=== PATIENT | female | born 1965 | race Caucasian/White ===

== ENCOUNTER 2021-10-16 13:33 | Day surgery (SDC) | payer MEDICARE, BC ==
[2021-10-12 09:52] LABS: BASOPHILS # (AUTO) 0.1 X10'3 (0-0.2); BASOPHILS % (AUTO) 1.5 % (0-1); EOSINOPHILS # (AUTO) 0.1 X10'3 (0-0.9); EOSINOPHILS % (AUTO) 1.6 % (0-6); HEMATOCRIT 40.6 % (35.0-45.0); HEMOGLOBIN 13.7 g/dl (12.0-16.0); LYMPHOCYTES # (AUTO) 1.9 X10'3 (1.1-4.8); LYMPHOCYTES % (AUTO) 24.3 % (21-51); MEAN CORPUSCULAR HEMOGLOBIN 30.6 PG (27.0-31.0); MEAN CORPUSCULAR HGB CONC 33.7 g/dL (33.0-36.5); MEAN CORPUSCULAR VOLUME 90.8 FL (78-98); MEAN PLATELET VOLUME 9.8 FL (7.4-10.4); MONOCYTES # (AUTO) 0.9 X10'3 (0-0.9); MONOCYTES % (AUTO) 10.8 % (2-12); NEUTROPHILS # (AUTO) 4.9 X10'3 (1.8-7.7); NEUTROPHILS % (AUTO) 61.8 % (42-75); PLATELET COUNT 229 X10'3 (140-440); RED BLOOD COUNT 4.47 X10'6 (4.20-5.60); RED CELL DISTRIBUTION WIDTH 14.4 % (11.5-14.5); WHITE BLOOD COUNT 7.9 X10'3 (4.5-11.0)
[2021-10-12 10:09] LABS: APTT 26 SECONDS (22-32)
[2021-10-12 11:24] LABS: ALBUMIN 4.1 G/DL (3.4-5.0); ANION GAP 13 (8-16); BLOOD UREA NITROGEN 15 MG/DL (7-18); BUN/CREATININE RATIO 16.1 (6.6-38.0); CALCIUM 9.6 MG/DL (8.5-10.1); CHLORIDE 106 MMOL/L (99-107); CREATININE 0.93 MG/DL (0.40-0.90); GLUCOSE 147 MG/DL (70-104); SODIUM 144 MMOL/L (135-145); TOTAL CARBON DIOXIDE 25.2 MMOL/L (24-32); eGFR 62 ML/MIN
[2021-10-16] VITALS (10 sets, daily range): BP systolic 135–186; BP diastolic 65–119
[~2021-10-16] VITALS: Ht 132.1 cm; Wt 50.2 kg
[~2021-10-16 13:33] MED LIST: AMLO10TA PO; ASPI-611 PO; ENAL-76 PO; HECORIA PO; INSU100V36 SQ; LANTUS SQ; METO50TA7 PO; MYCO500T PO; PRED5TAB PO
[2021-10-16] MEDS ORDERED: diphenhydrAMINE 25mg capsule PO PRN (13:50)
[2021-10-16] MEDS ORDERED: LORazepam 0.5 MG tablet PO PRN (13:50)
[2021-10-16] MEDS ORDERED: normal saline 1,000 ML IV SCH (13:50)
[2021-10-16] MEDS ORDERED: LIRA0.6P2 SQ (14:04)
[2021-10-16] MEDS ORDERED: TACR1CAP PO (14:04)
[2021-10-16] MEDS ORDERED: ENAL-79 PO (14:04)
[2021-10-16] MEDS ORDERED: EVOL140P3 SQ (14:04)
[2021-10-16] MEDS ORDERED: METO50TA16 PO (14:04)
[2021-10-16] MEDS ORDERED: INSU100I29 (14:05)
[2021-10-16] MEDS ORDERED: heparin 1,000unit/ml 10ml vial 10 ML ONE (14:53)
[2021-10-16] MEDS ORDERED: LIDOcaine 1% (10mg/ml)w/preservative injection 20ml MDV ONE (14:53)
[2021-10-16] MEDS ORDERED: iohexol 350MG/ML 100ml bottle IV ONE (14:53)
[2021-10-16] MEDS ORDERED: nitroGLYCERIN-Tridil 50MG/D5W 250 ML IV ONE (14:53)
[2021-10-16] MEDS ORDERED: verapamil 2.5 mg/ml inj IV ONE (14:53)
[2021-10-16] MEDS ORDERED: fentaNYL/PF 50MCG/1 ML 2ML syringe ONE (15:12)
[2021-10-16] MEDS ORDERED: midazolam 1 mg/ML 2ml injection ONE (15:12)
--- NOTE | 2021-10-16 19:40 | NUR ---
Discharge instructions given to pt and , questions answered, verbalize understanding.
[2021-10-16] MEDS ORDERED: acetaminophen 325mg tablet PO ONE (19:55)
[2021-10-16] MEDS ORDERED: metoprolol tartrate 50mg tablet PO ONE (19:55)
== END 2021-10-16 22:00 | disposition home or self-care (01) ==
LOC: SSTAY O 13:33
PROVIDERS: ATTEND Internal Medicine Interventional Cardiology
DX: I35.0 Nonrheumatic aortic (valve) stenosis (principal); I25.10 Atherosclerotic heart disease of native coronary artery without angina pectoris; E11.9 Type 2 diabetes mellitus without complications; I10 Essential (primary) hypertension; I65.29 Occlusion and stenosis of unspecified carotid artery; E78.49 Other hyperlipidemia; I65.23 Occlusion and stenosis of bilateral carotid arteries; Z94.0 Kidney transplant status; Z79.899 Other long term (current) drug therapy; Z79.4 Long term (current) use of insulin; Z94.83 Pancreas transplant status; Z91.018 Allergy to other foods; Z91.09 Other allergy status, other than to drugs and biological substances
CPT/HCPCS: 36415; 80048; 82948; 85025; 85610; 85730; 93005; 93454; 99152; 99153; C1760; C1769; C1894; J1644; J2250; J3010; J3490; J7030; Q9967; A5120; A6258

== ENCOUNTER 2021-10-24 09:48 | Outpatient (CLI) | payer MEDICARE, BC ==
[~2021-10-24 09:48] MED LIST changes: -ENAL-76 PO; +ENAL-79 PO; +EVOL140P3 SQ; -HECORIA PO; +INSU100I29; -LANTUS SQ; +LIRA0.6P2 SQ; +METO50TA16 PO; -METO50TA7 PO; +TACR1CAP PO
[2021-10-24 10:36] LABS: BASOPHILS # (AUTO) 0.1 X10'3 (0-0.2); BASOPHILS % (AUTO) 0.7 % (0-1); EOSINOPHILS # (AUTO) 0.1 X10'3 (0-0.9); EOSINOPHILS % (AUTO) 1.5 % (0-6); HEMATOCRIT 38.1 % (35.0-45.0); HEMOGLOBIN 12.5 g/dl (12.0-16.0); LYMPHOCYTES # (AUTO) 1.5 X10'3 (1.1-4.8); LYMPHOCYTES % (AUTO) 17.1 % (21-51); MEAN CORPUSCULAR HEMOGLOBIN 30.1 PG (27.0-31.0); MEAN CORPUSCULAR HGB CONC 32.7 g/dL (33.0-36.5); MEAN PLATELET VOLUME 10.4 FL (7.4-10.4); MONOCYTES # (AUTO) 0.9 X10'3 (0-0.9); MONOCYTES % (AUTO) 9.9 % (2-12); NEUTROPHILS # (AUTO) 6.3 X10'3 (1.8-7.7); NEUTROPHILS % (AUTO) 70.8 % (42-75); PLATELET COUNT 221 X10'3 (140-440); RED BLOOD COUNT 4.15 X10'6 (4.20-5.60); RED CELL DISTRIBUTION WIDTH 14.9 % (11.5-14.5); WHITE BLOOD COUNT 8.9 X10'3 (4.5-11.0)
[2021-10-24 10:48] LABS: APTT 25 SECONDS (22-32)
[2021-10-24] MEDS ORDERED: IODIXANOL 320 MG/ML INFUS..BTL 50ML IV ONE (11:20)
[2021-10-24] MEDS ORDERED: IODIXANOL 320 MG/ML INFUS..BTL 100ML IV ONE (11:20)
[2021-10-24 11:22] LABS: ALANINE AMINOTRANSFERASE 26 U/L (12-78); ALBUMIN 3.8 G/DL (3.4-5.0); ALBUMIN/GLOBULIN RATIO 1.4 (1.1-1.5); ANION GAP 10 (8-16); ASPARTATE AMINO TRANSFERASE 18 U/L (10-37); BILIRUBIN,TOTAL 0.3 MG/DL (0.1-1.0); BLOOD UREA NITROGEN 18 MG/DL (7-18); BUN/CREATININE RATIO 18.6 (6.6-38.0); CALCIUM 9.9 MG/DL (8.5-10.1); CHLORIDE 104 MMOL/L (99-107); CREATININE 0.97 MG/DL (0.40-0.90); GLUCOSE 212 MG/DL (70-104); POTASSIUM 4.1 MMOL/L (3.5-5.1); SODIUM 139 MMOL/L (135-145); TOTAL CARBON DIOXIDE 24.8 MMOL/L (24-32); TOTAL PROTEIN 6.6 G/DL (6.4-8.2); eGFR 59 ML/MIN
== END 2021-10-24 23:59 | disposition home or self-care (01) ==
LOC: 64 CT 09:48
PROVIDERS: ATTEND Internal Medicine Cardiovascular Disease
DX: K86.89 Other specified diseases of pancreas (principal); I70.0 Atherosclerosis of aorta; I70.8 Atherosclerosis of other arteries; I70.1 Atherosclerosis of renal artery; I25.10 Atherosclerotic heart disease of native coronary artery without angina pectoris; K55.1 Chronic vascular disorders of intestine; I35.1 Nonrheumatic aortic (valve) insufficiency; Z20.822 Contact with and (suspected) exposure to COVID-19
CPT/HCPCS: 36415; 71046; 71275; 74174; 80053; 85025; 85610; 85730; 87635; 94010; 94727; 94729; C9803; Q9967

== ENCOUNTER 2021-12-03 06:06 | Inpatient (IN) | payer MEDICARE, BC ==
[2021-11-29 14:51] LABS: BASOPHILS % (AUTO) 0.4 % (0-1); EOSINOPHILS % (AUTO) 0.2 % (0-6); LYMPHOCYTES % (AUTO) 11.4 % (21-51); MEAN CORPUSCULAR HEMOGLOBIN 30.1 PG (27.0-31.0); MEAN CORPUSCULAR HGB CONC 32.7 g/dL (33.0-36.5); MEAN CORPUSCULAR VOLUME 92.1 FL (78-98); MEAN PLATELET VOLUME 10.6 FL (7.4-10.4); MONOCYTES # (AUTO) 0.4 X10'3 (0-0.9); MONOCYTES % (AUTO) 4.8 % (2-12); NEUTROPHILS # (AUTO) 7.4 X10'3 (1.8-7.7); NEUTROPHILS % (AUTO) 83.2 % (42-75); PRE OP HEMATOCRIT 40.1 % (35.0-45.0); PRE OP HEMOGLOBIN 13.1 g/dL (12.0-16.0); PRE OP PLATELET COUNT 215 X10'3 (140-440); RED BLOOD COUNT 4.36 X10'6 (4.20-5.60); RED CELL DISTRIBUTION WIDTH 14.7 % (11.5-14.5)
[2021-11-29 14:57] LABS: PRE OP PROTIME 10.7 SECONDS (9.0-12.0)
[2021-11-29 15:04] LABS: ALBUMIN 4.2 G/DL (3.4-5.0); ALBUMIN/GLOBULIN RATIO 1.2 (1.1-1.5); ALKALINE PHOSPHATASE 70 IU/L (46-116); BLOOD UREA NITROGEN 23 MG/DL (7-18); CALCIUM 9.9 MG/DL (8.5-10.1); CHLORIDE 104 MMOL/L (99-107); CREATININE 0.82 MG/DL (0.40-0.90); PRE OP ALT 21 U/L (30-65); PRE OP ANION GAP 13 (8-16); PRE OP AST 14 U/L (10-37); PRE OP BILIRUB, TOTAL 0.4 MG/DL (0.0-1.0); PRE OP GLUCOSE 166 MG/DL (70-104); PRE OP POTASSIUM 4.2 MMOL/L (3.4-5.1); PRE OP SODIUM 142 MMOL/L (135-145); TOTAL PROTEIN 7.7 G/DL (6.4-8.2); eGFR 72 ML/MIN
[2021-11-29 15:09] LABS: CLARITY,URINE CLEAR (Clear); COLOR,URINE YELLOW (Yellow); GLUCOSE, URINE NEGATIVE (Neg); KETONES,URINE NEGATIVE (Neg); LEUKOCYTE ESTERASE ,URINE NEGATIVE (Neg); NITRITES, URINE NEGATIVE (Neg); OCCULT BLOOD,URINE NEGATIVE (Neg); PROTEIN,URINE NEGATIVE (Neg); UROBILINOGEN,URINE 0.2 E.U/dL (0.2-1.0)
[2021-11-29 15:10] LABS: UA COLLECTION TYPE CLN CATCH MIDSTREAM
[2021-11-29 15:44] LABS: LARGE PLATELETS FEW; PLATELET ESTIMATE NORMAL
[2021-11-30 10:33] LABS: HEMOGLOBIN A1C 6.7 % (4.5-6.2)
[2021-12-03] VITALS (17 sets, daily range): BP systolic 85–185; BP diastolic -15–80
[~2021-12-03] VITALS: Ht 149.9 cm; Wt 50.0 kg
[~2021-12-03 06:06] MED LIST changes: +DOCUMENT DATE & TIME OF BETA-BLOCKER PO ONE; -EVOL140P3 SQ; +EZET10TA48 PO; -INSU100I29; +INSU100I29 SQ; +INSU100I39 SQ; -INSU100V36 SQ; +MIDAZolam 1 MG/ML 5ML VIAL IV ONE; +MYCO500T5 PO; +ceFAZolin 1000mg inj ONE; +cefazolin/dext.iso 2gm/50ml IV ONE; +epiNEPHrine 1 mg/ml inj ONE; +famotidine 20mg tablet PO ONE; +mupirocin 2% nasal ointment 1gm UD NS ONE; +ringers solution, lacted 1,000 ML IV SCH
[2021-12-03 06:30] LABS: ABG BASE EXCESS -2.9 mmol/L (-2.0-2.0); ABG HCO3 21.7 mmol/L (22.0-26.0); ABG OXYGEN SATURATION 97.2 % (94-97); ABG PCO2 (T) 37.3 mmHg (32.0-45.0); ABG PO2 (T) 96.4 mmHg (75.0-100.0); ALLEN'S TEST POSITIVE; FCOHb 0.4 % (0.0-3.9); FMetHb 0.1 % (0.0-1.5); FO2Hb 96.7 % (94-97); TOTAL HEMOGLOBIN 13.4 G/dl (12.0-16.0)
[2021-12-03] MEDS ORDERED: heparin 10,000 units/1 ML INJ ONE (07:00)
[2021-12-03] MEDS ORDERED: sodium bicarbonate (8.4%) 1 mEq/ml syringe ONE (07:00)
[2021-12-03] MEDS ORDERED: aminocaproic acid 250 MG/1 ML inj. ONE (07:00)
[2021-12-03] MEDS ORDERED: heparin 1,000 units/ml 10ml inj ONE (07:00)
[2021-12-03] MEDS ORDERED: potassium Cl 2 mEq/ml inj IV ONE (07:00)
[2021-12-03] MEDS ORDERED: LIDOcaine 2% (20 mg/ml) 5ml cardiac syringe ONE (07:00)
[2021-12-03] MEDS ORDERED: methylPREDNISolone sod succ 1000mg vial ONE (07:00)
[2021-12-03] MEDS ORDERED: MAGNESIUM SULFATE 4 MEQ/ML (5gm/10ml) injection ONE (07:00)
[2021-12-03] MEDS ORDERED: albumin (human) 25% 100 ML IV solution IV ONE (07:00)
[2021-12-03] MEDS ORDERED: NORepinephrine 1 mg/ml inj IV ONE (07:00)
[2021-12-03] MEDS ORDERED: calcium chloride 100 MG/1 ML inj IV ONE (07:00)
[2021-12-03] MEDS ORDERED: midazolam 1 mg/ML 2ml injection IV ONE (07:10)
--- NOTE | 2021-12-03 07:11 | NUR ---
[facility] RESULTED, DR WANG NOTIFIED, MAKE SURE PT GETS VANCOMYCIN. MACKENZIE NOTIFIED
[2021-12-03] MEDS ORDERED: vancomycin/NS 1 GM ADD-VANTAGE 250 ML IV ONE (07:25)
[2021-12-03] MEDS ORDERED: MIDAZolam 1mg/ml 10ml vial ONE (07:35)
[2021-12-03] MEDS ORDERED: rocuronium 10mg/ml inj IV ONE ×3 (07:36)
[2021-12-03] MEDS ORDERED: fentaNYL /PF 50mcg/ml 5ml ampule ONE ×2 (07:36)
[2021-12-03] MEDS ORDERED: etomidate 2mg/ml inj. ONE (07:37)
[2021-12-03] MEDS ORDERED: nitroGLYCERIN in D5W 50mg/250ml (Tridil) infusion IV ONE (07:57)
[2021-12-03] MEDS ORDERED: protamine sulf. 10mg/ml inj. IV ONE (07:57)
[2021-12-03] MEDS ORDERED: hydrALAZINE 20mg/ml inj. IV ONE ×2 (07:57→10:59)
[2021-12-03] MEDS ORDERED: sevoflurane 250ml liquid IH ONE (07:57)
[2021-12-03] MEDS ORDERED: niCARDipine in NS 40mg/200ml (0.2mg/ml) IVPB IV ONE (07:57)
--- NOTE | 2021-12-03 08:00 | NUR ---
patients medications, prograf, cellcept, prenisone, triseba, victoza, and humalog pens along with 5 needles for the pens were taken to pharmacy. signed and counted with Mouna alonzo in a black case.
[2021-12-03 08:47] LABS: ABG BASE EXCESS -4.3 mmol/L (-2.0-2.0); ABG HCO3 18.2 mmol/L (22.0-26.0); ABG OXYGEN SATURATION 99.9 % (94-97); ABG PCO2 26.1 mmHg (32.0-45.0); ABG PO2 527.7 mmHg (75.0-100.0); CL (ABG) 106 mmol/L (98-110); FCOHb 0.1 % (0.0-3.9); FMetHb 0.3 % (0.0-1.5); FO2Hb 99.5 % (94-97); GLUCOSE (ABG) 135 mg/dl (70-105); IONIZED CA (ABG) 1.17 mmol/L (1.10-1.43); K (ABG) 3.7 mmol/L (3.5-5.0); TOTAL HEMOGLOBIN 11.3 G/dl (12.0-16.0)
[2021-12-03 09:18] LABS: ABG BASE EXCESS -24.7 mmol/L (-2.0-2.0); ABG HCO3 3.4 mmol/L (22.0-26.0); ABG PO2 (T) 99.4 mmHg (75.0-100.0)
[2021-12-03 09:29] LABS: ABG BASE EXCESS 0.1 mmol/L (-2.0-2.0); ABG HCO3 23.4 mmol/L (22.0-26.0); ABG OXYGEN SATURATION 99.7 % (94-97); ABG PCO2 31.7 mmHg (32.0-45.0); ABG PO2 453.6 mmHg (75.0-100.0); CL (ABG) 102 mmol/L (98-110); FCOHb 1.4 % (0.0-3.9); FMetHb 0.3 % (0.0-1.5); GLUCOSE (ABG) 65 mg/dl (70-105); IONIZED CA (ABG) 0.89 mmol/L (1.10-1.43); K (ABG) 3.2 mmol/L (3.5-5.0)
[2021-12-03 10:19] LABS: ABG BASE EXCESS VENOUS -2.9 mmol/L (-2.0 - 2.0); ABG PCO2 VENOUS 44.9 mmHg (38.0-51.0); ABG PO2 VENOUS 57.1 mmHg (25.0-35.0); CL (ABG) 108 mmol/L (98-110); FCOHb VENOUS 0.4 % (0.0- 3.9); FHHb VENOUS 10.2 %; FMetHb VENOUS 0.3 % (0.0 - 0.5); FO2Hb VENOUS 89.1 %; GLUCOSE (ABG) 110 mg/dl (70-105); IONIZED CA (ABG) 1.22 mmol/L (1.10-1.43); K (ABG) 5.3 mmol/L (3.5-5.0); TOTAL HEMOGLOBIN 8.8 G/dl (12.0-16.0)
[2021-12-03 10:50] LABS: ABG BASE EXCESS -1.9 mmol/L (-2.0-2.0); ABG HCO3 20.3 mmol/L (22.0-26.0); ABG OXYGEN SATURATION 99.7 % (94-97); ABG PCO2 25.4 mmHg (32.0-45.0); ABG PO2 321.7 mmHg (75.0-100.0); CL (ABG) 108 mmol/L (98-110); FCOHb 0.5 % (0.0-3.9); FMetHb 0.3 % (0.0-1.5); FO2Hb 98.9 % (94-97); GLUCOSE (ABG) 149 mg/dl (70-105); IONIZED CA (ABG) 1.15 mmol/L (1.10-1.43); K (ABG) 4.7 mmol/L (3.5-5.0); TOTAL HEMOGLOBIN 8.6 G/dl (12.0-16.0)
[2021-12-03 11:24] LABS: ABG BASE EXCESS -0.1 mmol/L (-2.0-2.0); ABG HCO3 22.5 mmol/L (22.0-26.0); ABG OXYGEN SATURATION 99.7 % (94-97); ABG PCO2 28.2 mmHg (32.0-45.0); ABG PO2 346.9 mmHg (75.0-100.0); CL (ABG) 103 mmol/L (98-110); FCOHb 1.2 % (0.0-3.9); FMetHb 0.3 % (0.0-1.5); FO2Hb 98.2 % (94-97); GLUCOSE (ABG) 157 mg/dl (70-105); IONIZED CA (ABG) 1.38 mmol/L (1.10-1.43); K (ABG) 4.7 mmol/L (3.5-5.0); TOTAL HEMOGLOBIN 7.4 G/dl (12.0-16.0)
[2021-12-03 11:45] LABS: ACT @ 1.70 U 292 SEC (193-297); ACT @ 2.84 U 410 SEC (260-420); BASELINE ACT 133 SEC (101-148); PATIENT WEIGHT 50.0k KG
[2021-12-03 11:48] LABS: ABG BASE EXCESS -7.6 mmol/L (-2.0-2.0); ABG HCO3 15.9 mmol/L (22.0-26.0); ABG OXYGEN SATURATION 91.5 % (94-97); ABG PCO2 23.9 mmHg (32.0-45.0); ABG PO2 55.7 mmHg (75.0-100.0); CL (ABG) 107 mmol/L (98-110); FCOHb 1.7 % (0.0-3.9); FMetHb 0.1 % (0.0-1.5); FO2Hb 89.9 % (94-97); GLUCOSE (ABG) 126 mg/dl (70-105); IONIZED CA (ABG) 1.19 mmol/L (1.10-1.43); K (ABG) 4.2 mmol/L (3.5-5.0)
[2021-12-03 11:52] LABS: ACTIVATED CLOTTING TIME 139 SEC (101-148)
[2021-12-03] MEDS ORDERED: nitroGLYCERIN-Tridil 50MG/D5W 250 ML IV SCH (12:25)
[2021-12-03] MEDS ORDERED: bisacodyl 10mg suppository rectal RC PRN (12:25)
[2021-12-03] MEDS ORDERED: niCARDipine-NS 40mg/200ml IVPB 200 ML IV PRN (12:25)
[2021-12-03] MEDS ORDERED: HYDROcodone/acetaminophen 10/325mg tab PO PRN (12:25)
[2021-12-03] MEDS ORDERED: sodium chloride 0.45% 1,000 ML IV SCH (12:25)
[2021-12-03] MEDS ORDERED: metoclopramide 5 mg/ml inj IV PRN (12:25)
[2021-12-03] MEDS ORDERED: acetaminophen 325mg tablet PO PRN (12:25)
[2021-12-03] MEDS ORDERED: Insulin Reg/NS 100units/100mL 100 ML IV SCH (12:25)
[2021-12-03] MEDS ORDERED: magnesium citrate 296ml oral solution PO PRN (12:25)
[2021-12-03] MEDS ORDERED: potassium CL 10mEq/100ml bag 100 ML IV PRN (12:25)
[2021-12-03] MEDS ORDERED: Neutra Phos packet PO PRN (12:25)
[2021-12-03] MEDS ORDERED: potassium Cl 20 mEq SR tablet PO PRN (12:25)
[2021-12-03] MEDS ORDERED: magnesium 2GM in 50ml NS 50 ML IV PRN (12:25)
[2021-12-03] MEDS ORDERED: sodium phosphate inj. 15 MMOL in dextrose 5%-water 250 ML IV PRN (12:25)
[2021-12-03] MEDS ORDERED: insulin glargine (Lantus) pen - multi-dose SQ PRN (12:25)
[2021-12-03] MEDS ORDERED: magnesium hydroxide 30ml (MOM) UD suspension PO PRN (12:25)
[2021-12-03] MEDS ORDERED: NORepinephrine 8mg/ 250ml NS 250 ML IV PRN (12:25)
[2021-12-03] MEDS ORDERED: sodium phosphate inj. 30 MMOL in dextrose 5%-water 250 ML IV PRN (12:25)
[2021-12-03] MEDS ORDERED: dextrose 50%-water 50ml dispensing syringe IV PRN (12:25)
[2021-12-03] MEDS ORDERED: mineral oil 133ml enema RC PRN (12:25)
[2021-12-03] MEDS ORDERED: magnesium 4gm in 100ml NS 100 ML IV PRN (12:25)
[2021-12-03 12:46] LABS: ABG BASE EXCESS -2.7 mmol/L (-2.0-2.0); ABG OXYGEN SATURATION 98.9 % (94-97); ABG PCO2 (T) 27.3 mmHg (32.0-45.0); ABG PO2 (T) 186.2 mmHg (75.0-100.0); FCOHb 0.4 % (0.0-3.9); FMetHb 0.4 % (0.0-1.5); FO2Hb 98.1 % (94-97); PATIENT TEMPERATURE 35.6; PEEP 5 cm H2O; RESPIRATORY RATE 10 b/min; TIDAL VOLUME 500 mL; TOTAL HEMOGLOBIN 13.2 G/dl (12.0-16.0)
[2021-12-03 12:56] LABS: BASOPHILS % (AUTO) 0.1 % (0-1); EOSINOPHILS % (AUTO) 0.2 % (0-6); HEMATOCRIT 37.8 % (35.0-45.0); HEMOGLOBIN 12.3 g/dl (12.0-16.0); LYMPHOCYTES # (AUTO) 1.3 X10'3 (1.1-4.8); LYMPHOCYTES % (AUTO) 5.8 % (21-51); MEAN CORPUSCULAR HEMOGLOBIN 28.6 PG (27.0-31.0); MEAN CORPUSCULAR HGB CONC 32.5 g/dL (33.0-36.5); MEAN CORPUSCULAR VOLUME 88.1 FL (78-98); MEAN PLATELET VOLUME 10.2 FL (7.4-10.4); MONOCYTES # (AUTO) 1.3 X10'3 (0-0.9); MONOCYTES % (AUTO) 5.8 % (2-12); NEUTROPHILS # (AUTO) 19.2 X10'3 (1.8-7.7); NEUTROPHILS % (AUTO) 88.1 % (42-75); PLATELET COUNT 82 X10'3 (140-440); RED BLOOD COUNT 4.29 X10'6 (4.20-5.60); RED CELL DISTRIBUTION WIDTH 15.5 % (11.5-14.5); WHITE BLOOD COUNT 21.8 X10'3 (4.5-11.0)
[2021-12-03] MEDS: gabapentin 300mg capsule PO SCH (13:10)
[2021-12-03 13:11] LABS: APTT 36 SECONDS (22-32)
--- NOTE | 2021-12-03 13:25 | NUR ---
CABG/Malnutrition consult: Pt s/p AVR and CABG per EMR, just came out of recovery at time of assessment and still intubated. No signs of muscle or fat wasting observed at bedside. Current wt is consistent w/ wt from 1 month ago, no edema noted. At this time pt does not meet minimum criteria for malnutrition. Pt can benefit from CABG nutrition therapy ed once appropriate. Will continue to monitor. Addendum: 12/03/21 at [address] Amended: Links added.
[2021-12-03 13:35] LABS: MAGNESIUM 3.8 MG/DL (1.5-2.4)
[2021-12-03 13:50] LABS: ABG PCO2 (T) 12.2 mmHg (32.0-45.0)
[2021-12-03 13:51] LABS: TOTAL HEMOGLOBIN 6.5 G/dl (12.0-16.0)
--- NOTE | 2021-12-03 14:00 | NUR ---
Received to room 2038 at apporximately 12:45, accompanied by Mary Levine PA and surgical crew. Placed on ventilator, to professor of history, arterial line and PA line pressure monitored. Chest tubes to suction at 20 cm. Villasenor cath to gravity drainage. Dressings are dry and intact. See assessment record. All vasoactive drugs are infusing via central line. Pt needed Bear Hugger for low temp. . Albumin for low pressures. Insulin adjusted per protocol.
[2021-12-03 14:23] LABS: ALBUMIN 2.7 G/DL (3.4-5.0); ANION GAP 14 (8-16); BLOOD UREA NITROGEN 16 MG/DL (7-18); BUN/CREATININE RATIO 20.5 (6.6-38.0); CALCIUM 8.8 MG/DL (8.5-10.1); CHLORIDE 109 MMOL/L (99-107); CREATININE 0.78 MG/DL (0.40-0.90); GLUCOSE 191 MG/DL (70-104); SODIUM 142 MMOL/L (135-145); TOTAL CARBON DIOXIDE 19.4 MMOL/L (24-32); eGFR 76 ML/MIN
[2021-12-03 14:25] LABS: PHOSPHORUS 0.9 MG/DL (2.3-4.5); POTASSIUM 4.1 MMOL/L (3.5-5.1)
[2021-12-03] MEDS ORDERED: sodium phosphate inj. 30 MMOL in normal saline 250ml IV soln 250 ML IV PRN (14:30)
[2021-12-03] MEDS: potassium Cl 20mEq/100mL bag 100 ML IV PRN ×4 (14:32→20:53)
[2021-12-03] MEDS: albumin (Human) 5% 250ml 250 ML IV PRN ×3 (16:30→20:34)
[2021-12-03] MEDS: ceFAZolin/D5W- 1GM premix 50 ML IV SCH (16:35)
--- NOTE | 2021-12-03 18:24 | NUR ---
Problems reprioritized. Patient report given, questions answered & plan of care reviewed with Shamika FARRELL. Dr. Peter and PA to see pt as well. Updates provided. would like pt extubated addie.
--- NOTE | 2021-12-03 18:24 | NUR ---
Patient in room ICU 2038. I have received report from BUD Murphy and had the opportunity to ask questions and assume patient care.
[2021-12-03 18:56] LABS: BASOPHILS % (AUTO) 0 % (0-1); EOSINOPHILS % (AUTO) 0 % (0-6); HEMATOCRIT 24.3 % (35.0-45.0); HEMOGLOBIN 7.9 g/dl (12.0-16.0); LYMPHOCYTES # (AUTO) 0.3 X10'3 (1.1-4.8); MEAN CORPUSCULAR HEMOGLOBIN 28.9 PG (27.0-31.0); MEAN CORPUSCULAR HGB CONC 32.4 g/dL (33.0-36.5); MEAN CORPUSCULAR VOLUME 89.2 FL (78-98); MEAN PLATELET VOLUME 10.2 FL (7.4-10.4); MONOCYTES # (AUTO) 0.7 X10'3 (0-0.9); MONOCYTES % (AUTO) 4.8 % (2-12); NEUTROPHILS # (AUTO) 14.2 X10'3 (1.8-7.7); NEUTROPHILS % (AUTO) 93.2 % (42-75); PLATELET COUNT 52 X10'3 (140-440); RED BLOOD COUNT 2.72 X10'6 (4.20-5.60); RED CELL DISTRIBUTION WIDTH 15.4 % (11.5-14.5); WHITE BLOOD COUNT 15.2 X10'3 (4.5-11.0)
[2021-12-03 18:59] LABS: ALBUMIN 3.3 G/DL (3.4-5.0); ANION GAP 15 (8-16); BLOOD UREA NITROGEN 15 MG/DL (7-18); BUN/CREATININE RATIO 15.6 (6.6-38.0); CALCIUM 7.6 MG/DL (8.5-10.1); CHLORIDE 115 MMOL/L (99-107); CREATININE 0.96 MG/DL (0.40-0.90); GLUCOSE 108 MG/DL (70-104); MAGNESIUM 2.5 MG/DL (1.5-2.4); POTASSIUM 3.7 MMOL/L (3.5-5.1); SODIUM 148 MMOL/L (135-145); TOTAL CARBON DIOXIDE 17.7 MMOL/L (24-32); eGFR 60 ML/MIN
--- NOTE | 2021-12-03 19:00 | NUR ---
Patient is calm in bed, drowsy, easily awakens to verbal. Patient is intubated and on spontaneous on the ventilator at 40 % FIO2. cardiac monitor technician showing normal sinus rhythm. Patient nods head "no" in response to pain questions.
[2021-12-03] MEDS ORDERED: HYDROmorphone/PF 0.2 MG/ML SYRINGE IV PRN ×2 (19:15)
[2021-12-03 19:40] LABS: ABG BASE EXCESS -9.1 mmol/L (-2.0-2.0); ABG HCO3 14.7 mmol/L (22.0-26.0); ABG OXYGEN SATURATION 97.1 % (94-97); ABG PCO2 (T) 24.8 mmHg (32.0-45.0); ABG PO2 (T) 101.6 mmHg (75.0-100.0); ALLEN'S TEST POSITIVE; FCOHb 0.3 % (0.0-3.9); FMetHb 0.4 % (0.0-1.5); FO2Hb 96.4 % (94-97); PATIENT TEMPERATURE 36.5; PEEP 5 cm H2O; TOTAL HEMOGLOBIN 8.8 G/dl (12.0-16.0)
--- NOTE | 2021-12-03 19:52 | NUR ---
Dr. Peter called to notify of critical values, Hgb 7.9, BP 98/44 (61), Nitroglycerin infusing at 10 mcg. Weaning parameters completed with NO cuff leak heard. Per Dr. Peter: Extubated patient even without a cuff leak. Nitroglycerin is to remain on throughout the night at 10 mcg. Reviewed I&O with . Order for Albumin 5% x one IV now. Addendum: 12/04/21 at 0412 by Yoon Bernal RN stated that he will not transfuse blood until the Hgb is less than 6.5.
[2021-12-03] MEDS: tacrolimus anhydrous 1mg capsule PO SCH (20:00)
[2021-12-03] MEDS: sennosides/docusate sodium tablet PO SCH (20:00)
--- NOTE | 2021-12-03 20:00 | NUR ---
Patient with positive cuff leak. Patient extubated by RT. Patient is able to state her name clearly. C/O "sore throat". Denies any pain at this time. Placed on 4 lpm nasal cannula. oxygen saturation 100%. respiratory rate 20. Lung sounds clear and equal.
[2021-12-03] MEDS ORDERED: albumin (Human) 5% 250ml 250 ML IV ONE (20:15)
--- NOTE | 2021-12-03 20:15 | NUR ---
Patient is extubated and is able to speak clearly. Oriented to person and place. Reoriented to time and events.
[2021-12-03] MEDS: atorvastatin 10mg tablet PO SCH (21:00)
--- NOTE | 2021-12-03 21:30 | NUR ---
Dr. Peter called re: Patient started on Levophed as ordered BP systolic 70's MAP 50. PA: 30/06. Per MD continue Levophed as ordered to maintain SBP greater than 100. Made MD aware of Chest tube output total, CT #[address] #2 400 mL. Order for PT/ INR, PTT stat.
[2021-12-03 21:42] LABS: APTT 68 SECONDS (22-32)
[2021-12-03] MEDS: ondansetron/PF 4mg/2ml inj IV PRN (21:45)
[2021-12-03] MEDS: vancomycin/NS 1 GM ADD-VANTAGE 250 ML IV SCH (22:57)
[2021-12-03 23:17] LABS: BASOPHILS % (AUTO) 0 % (0-1); EOSINOPHILS % (AUTO) 0 % (0-6); LYMPHOCYTES # (AUTO) 0.3 X10'3 (1.1-4.8); LYMPHOCYTES % (AUTO) 1.6 % (21-51); MEAN CORPUSCULAR HEMOGLOBIN 28.9 PG (27.0-31.0); MEAN CORPUSCULAR HGB CONC 32.1 g/dL (33.0-36.5); MEAN CORPUSCULAR VOLUME 90.1 FL (78-98); MEAN PLATELET VOLUME 10.3 FL (7.4-10.4); MONOCYTES # (AUTO) 0.8 X10'3 (0-0.9); NEUTROPHILS # (AUTO) 18.5 X10'3 (1.8-7.7); NEUTROPHILS % (AUTO) 94.4 % (42-75); PLATELET COUNT 54 X10'3 (140-440); RED BLOOD COUNT 2.41 X10'6 (4.20-5.60); RED CELL DISTRIBUTION WIDTH 16.4 % (11.5-14.5); WHITE BLOOD COUNT 19.6 X10'3 (4.5-11.0)
[2021-12-03 23:20] LABS: ALANINE AMINOTRANSFERASE 38 U/L (12-78); ALBUMIN 3.3 G/DL (3.4-5.0); ALKALINE PHOSPHATASE 19 IU/L (46-116); ANION GAP 11 (8-16); ASPARTATE AMINO TRANSFERASE 60 U/L (10-37); BILIRUBIN,TOTAL 1.9 MG/DL (0.1-1.0); BLOOD UREA NITROGEN 15 MG/DL (7-18); BUN/CREATININE RATIO 16.9 (6.6-38.0); CALCIUM 7.7 MG/DL (8.5-10.1); CHLORIDE 116 MMOL/L (99-107); CREATININE 0.89 MG/DL (0.40-0.90); GLUCOSE 249 MG/DL (70-104); POTASSIUM 5.7 MMOL/L (3.5-5.1); SODIUM 145 MMOL/L (135-145); TOTAL CARBON DIOXIDE 17.6 MMOL/L (24-32); TOTAL PROTEIN 4.4 G/DL (6.4-8.2); eGFR 65 ML/MIN
[2021-12-03 23:24] LABS: HEMATOCRIT 21.7 % (35.0-45.0)
[2021-12-04] VITALS (29 sets, daily range): BP systolic 92–143; BP diastolic 36–81
--- NOTE | 2021-12-04 | NUR ---
Patient continues to be confused. Oriented to person consistently. Patient is off and on oriented to place and events. Patient remains sleepy, will wake up easily to verbal stimuli. Patient continues to pull at line and tubes. 1:1 observation required. Patient is able to eat ice cubes will cough and gag. Patient vomiting small amount of clear fluid up, during these gagging and vomiting events patient becomes bradycardic for short amounts of time. Patient medicated for nausea.
[2021-12-04] MEDS: mupirocin 2% nasal ointment 1gm UD NS SCH ×3 (00:01→20:21)
[2021-12-04] MEDS: ceFAZolin/D5W- 1GM premix 50 ML IV SCH ×3 (01:30→15:35)
[2021-12-04] MEDS: gabapentin 300mg capsule PO SCH ×4 (01:30→20:22)
--- NOTE | 2021-12-04 01:42 | NUR ---
Patient is now able to safely swallow. Pharmacist consulted on safety on giving patients verified and approved home meds that have been dispensed by [facility] pharmacy. Per pharmacist give medication that is scheduled for HS and pharmacy to re time the BID dose for the morning.
[2021-12-04] MEDS: Insulin Reg/NS 100units/100mL 100 ML IV SCH ×2 (01:53→16:30)
[2021-12-04] MEDS: MYCOPHENOLATE MOFETIL 500 MG PO SCH ×4 (01:55→20:43)
[2021-12-04 04:07] LABS: BASOPHILS % (AUTO) 0.1 % (0-1); EOSINOPHILS % (AUTO) 0 % (0-6); LYMPHOCYTES # (AUTO) 0.3 X10'3 (1.1-4.8); LYMPHOCYTES % (AUTO) 1.8 % (21-51); MEAN CORPUSCULAR HEMOGLOBIN 28.8 PG (27.0-31.0); MEAN CORPUSCULAR HGB CONC 32.1 g/dL (33.0-36.5); MEAN CORPUSCULAR VOLUME 89.6 FL (78-98); MEAN PLATELET VOLUME 10.4 FL (7.4-10.4); MONOCYTES % (AUTO) 5.5 % (2-12); NEUTROPHILS # (AUTO) 17.5 X10'3 (1.8-7.7); NEUTROPHILS % (AUTO) 92.6 % (42-75); PLATELET COUNT 57 X10'3 (140-440); RED BLOOD COUNT 2.37 X10'6 (4.20-5.60); RED CELL DISTRIBUTION WIDTH 16.2 % (11.5-14.5); WHITE BLOOD COUNT 18.9 X10'3 (4.5-11.0)
[2021-12-04 04:09] LABS: HEMATOCRIT 21.3 % (35.0-45.0); HEMOGLOBIN 6.8 g/dl (12.0-16.0)
[2021-12-04 04:19] LABS: APTT 39 SECONDS (22-32)
[2021-12-04 04:21] LABS: ALANINE AMINOTRANSFERASE 44 U/L (12-78); ALBUMIN 3.5 G/DL (3.4-5.0); ALBUMIN/GLOBULIN RATIO 2.7 (1.1-1.5); ALKALINE PHOSPHATASE 21 IU/L (46-116); ANION GAP 10 (8-16); ASPARTATE AMINO TRANSFERASE 59 U/L (10-37); BILIRUBIN,TOTAL 0.9 MG/DL (0.1-1.0); BLOOD UREA NITROGEN 16 MG/DL (7-18); BUN/CREATININE RATIO 20.3 (6.6-38.0); CALCIUM 7.7 MG/DL (8.5-10.1); CHLORIDE 121 MMOL/L (99-107); CREATININE 0.79 MG/DL (0.40-0.90); GLUCOSE 156 MG/DL (70-104); MAGNESIUM 2.2 MG/DL (1.5-2.4); PHOSPHORUS 2.7 MG/DL (2.3-4.5); POTASSIUM 4.3 MMOL/L (3.5-5.1); SODIUM 150 MMOL/L (135-145); TOTAL CARBON DIOXIDE 19.4 MMOL/L (24-32); TOTAL PROTEIN 4.8 G/DL (6.4-8.2); eGFR 75 ML/MIN
--- NOTE | 2021-12-04 04:30 | NUR ---
Hbg 6.[address] Peter called, order for 1 unit PRBC;s.
--- NOTE | 2021-12-04 05:23 | NUR ---
Patient continues to require 1:1 supervision to prevent self injury from attempting to pull herself up and around in bed, patient also will pull at lines and tubes. Patient requiring less re orientation to location and events. Patient complaining of "needing to pee" Patients urinary catheter is patent. Bladder scan revealed no volume in bladder.
--- NOTE | 2021-12-04 06:00 | NUR ---
Education on sternal precautions and use of pillow to chest given several times throughout shift. Patient requires assistance to maintain sternal precautions. Patient educated on not using elbows and arms to move herself in bed.
--- NOTE | 2021-12-04 06:19 | NUR ---
Problems reprioritized. Patient report given, questions answered & plan of care reviewed with BUD Murphy.
[2021-12-04] MEDS ORDERED: aspirin 325mg tablet, delayed-release (Ecotrin) PO SCH (08:00)
[2021-12-04] MEDS: metoprolol tartrate 12.5mg (1/2 tablet) PO SCH ×2 (08:00→20:00)
[2021-12-04] MEDS: sennosides/docusate sodium tablet PO SCH ×2 (08:24→20:22)
[2021-12-04] MEDS: vancomycin/NS 1 GM ADD-VANTAGE 250 ML IV SCH ×2 (08:24→20:23)
[2021-12-04] MEDS: predniSONE 5mg tablet PO SCH (08:24)
[2021-12-04] MEDS: tacrolimus anhydrous 1mg capsule PO SCH ×2 (08:37→20:42)
[2021-12-04] MEDS: ondansetron/PF 4mg/2ml inj IV PRN (09:35)
--- NOTE | 2021-12-04 12:30 | NUR ---
PA line removed Per Dr. Peter order. tip intact. new central line dressing placed. pt tolerated well.
[2021-12-04] MEDS: insulin Lispro (HumaLOG) vial - multi-dose SQ SCH ×2 (14:02→17:16)
[2021-12-04] MEDS: acetaminophen 325mg tablet PO PRN ×2 (15:35→20:22)
[2021-12-04 16:05] LABS: HEMOGLOBIN 7.8 g/dl (12.0-16.0); MEAN CORPUSCULAR HEMOGLOBIN 27.2 PG (27.0-31.0); MEAN CORPUSCULAR HGB CONC 31.4 g/dL (33.0-36.5); MEAN CORPUSCULAR VOLUME 86.8 FL (78-98); MEAN PLATELET VOLUME 10.8 FL (7.4-10.4); RED BLOOD COUNT 2.88 X10'6 (4.20-5.60); RED CELL DISTRIBUTION WIDTH 18.5 % (11.5-14.5); WHITE BLOOD COUNT 19.6 X10'3 (4.5-11.0)
[2021-12-04 16:11] LABS: PLATELET COUNT 42 X10'3 (140-440)
--- NOTE | 2021-12-04 16:15 | NUR ---
Critical platelet: 42. Dr. Peter notified. no new orders received.
--- NOTE | 2021-12-04 18:36 | NUR ---
Problems reprioritized. Patient report given, questions answered & plan of care reviewed with Liat FARRELL.
[2021-12-04] MEDS: atorvastatin 10mg tablet PO SCH (20:21)
[2021-12-05] VITALS (21 sets, daily range): BP systolic 101–175; BP diastolic 62–91
[2021-12-05] MEDS: ceFAZolin/D5W- 1GM premix 50 ML IV SCH (00:13)
[2021-12-05 03:02] LABS: BASOPHILS % (AUTO) 0 % (0-1); EOSINOPHILS % (AUTO) 0 % (0-6); HEMATOCRIT 24.9 % (35.0-45.0); LYMPHOCYTES # (AUTO) 0.7 X10'3 (1.1-4.8); LYMPHOCYTES % (AUTO) 3.6 % (21-51); MEAN CORPUSCULAR HEMOGLOBIN 27.7 PG (27.0-31.0); MEAN CORPUSCULAR VOLUME 86.6 FL (78-98); MEAN PLATELET VOLUME 11.3 FL (7.4-10.4); MONOCYTES # (AUTO) 1.4 X10'3 (0-0.9); MONOCYTES % (AUTO) 7.1 % (2-12); NEUTROPHILS # (AUTO) 17.1 X10'3 (1.8-7.7); NEUTROPHILS % (AUTO) 89.3 % (42-75); RED BLOOD COUNT 2.88 X10'6 (4.20-5.60); RED CELL DISTRIBUTION WIDTH 18.7 % (11.5-14.5); WHITE BLOOD COUNT 19.1 X10'3 (4.5-11.0)
[2021-12-05 03:19] LABS: PLATELET COUNT 44 X10'3 (140-440)
[2021-12-05 03:25] LABS: ALBUMIN 2.8 G/DL (3.4-5.0); ANION GAP 10 (8-16); BLOOD UREA NITROGEN 24 MG/DL (7-18); BUN/CREATININE RATIO 20.7 (6.6-38.0); CALCIUM 8.5 MG/DL (8.5-10.1); CHLORIDE 109 MMOL/L (99-107); CREATININE 1.16 MG/DL (0.40-0.90); GLUCOSE 147 MG/DL (70-104); MAGNESIUM 2.3 MG/DL (1.5-2.4); PHOSPHORUS 3.8 MG/DL (2.3-4.5); POTASSIUM 5.9 MMOL/L (3.5-5.1); SODIUM 137 MMOL/L (135-145); TOTAL CARBON DIOXIDE 17.6 MMOL/L (24-32); eGFR 48 ML/MIN
[2021-12-05] MEDS: ondansetron/PF 4mg/2ml inj IV PRN ×2 (04:06→18:32)
--- NOTE | 2021-12-05 05:00 | NUR ---
Informed during report patient has had decreased urine output, urine output continues to be scant at this time. Patient states she does not feel the urine to urinate, bladder os not distend. Villasenor has been flushed. Will continue to monitor.
[2021-12-05 05:01] LABS: ANISOCYTOSIS 2+; PLATELET ESTIMATE DECREASED
[2021-12-05 05:02] LABS: BURR CELLS 1+; ELLIPTOCYTES FEW; LARGE PLATELETS FEW; POLYCHROMASIA FEW
[2021-12-05] MEDS: acetaminophen 325mg tablet PO PRN ×2 (06:50→13:47)
--- NOTE | 2021-12-05 06:50 | NUR ---
Problems reprioritized. Patient report given, questions answered & plan of care reviewed
[2021-12-05] MEDS: MYCOPHENOLATE MOFETIL 500 MG PO SCH ×2 (07:41→20:22)
[2021-12-05] MEDS: tacrolimus anhydrous 1mg capsule PO SCH ×2 (07:42→20:22)
[2021-12-05] MEDS: sennosides/docusate sodium tablet PO SCH ×2 (07:43→20:21)
[2021-12-05] MEDS: pantoprazole 40mg Tablet.DR PO SCH (07:44)
[2021-12-05] MEDS: gabapentin 300mg capsule PO SCH (07:44)
[2021-12-05] MEDS: metoprolol tartrate 12.5mg (1/2 tablet) PO SCH ×2 (07:46→20:21)
[2021-12-05] MEDS: mupirocin 2% nasal ointment 1gm UD NS SCH (07:48)
[2021-12-05] MEDS: predniSONE 5mg tablet PO SCH (07:51)
[2021-12-05] MEDS: aspirin 81mg, enteric-coated 1 TAB TABLET.DR PO SCH (07:59)
[2021-12-05] MEDS ORDERED: furosemide 40mg/4ml inj IV ONE (08:00)
[2021-12-05] MEDS: insulin Lispro (HumaLOG) vial - multi-dose SQ SCH ×3 (09:42→21:09)
[2021-12-05] MEDS: normal saline 1000ml 1,000 ML IV SCH ×2 (10:00→23:00)
[2021-12-05 12:06] LABS: TOTAL PROTEIN,URINE RANDOM 11.5 MG/DL
[2021-12-05 12:13] LABS: CLARITY,URINE SLIGHTLY CLOUDY (Clear); COLOR,URINE YELLOW (Yellow); GLUCOSE, URINE NEGATIVE (Neg); KETONES,URINE NEGATIVE (Neg); LEUKOCYTE ESTERASE ,URINE NEGATIVE (Neg); NITRITES, URINE NEGATIVE (Neg); OCCULT BLOOD,URINE MODERATE (Neg); PH,URINE 5.5 (4.8-8.0); PROTEIN,URINE NEGATIVE (Neg); UA COLLECTION TYPE FOLEY CATH; UROBILINOGEN,URINE 0.2 E.U/dL (0.2-1.0)
[2021-12-05 12:23] LABS: BACTERIA,URINE 1+ /HPF (Neg); SQUAMOUS EPITHELIAL CELL,UR FEW /LPF (FEW)
[2021-12-05 12:24] LABS: WBC,URINE 0-4 /HPF (0-4)
[2021-12-05 12:51] LABS: UA EOSINOPHILS NO EOS /HPF
[2021-12-05] MEDS ORDERED: normal saline 1000ml 1,000 ML IV ONE (17:30)
--- NOTE | 2021-12-05 18:04 | NUR ---
Called Isha Campbell re low UO of 20cc :hr 1 liter NS bolus ordered
[2021-12-05] MEDS: atorvastatin 10mg tablet PO SCH (20:21)
[2021-12-06] VITALS (13 sets, daily range): BP systolic 116–188; BP diastolic 62–98
[2021-12-06] MEDS: Insulin Reg/NS 100units/100mL 100 ML IV SCH (01:50)
[2021-12-06 02:47] LABS: BASOPHILS # (AUTO) 0.2 X10'3 (0-0.2); BASOPHILS % (AUTO) 0.9 % (0-1); EOSINOPHILS % (AUTO) 0 % (0-6); HEMATOCRIT 25.5 % (35.0-45.0); HEMOGLOBIN 8.1 g/dl (12.0-16.0); LYMPHOCYTES # (AUTO) 0.6 X10'3 (1.1-4.8); LYMPHOCYTES % (AUTO) 2.7 % (21-51); MEAN CORPUSCULAR HEMOGLOBIN 27.5 PG (27.0-31.0); MEAN CORPUSCULAR HGB CONC 31.7 g/dL (33.0-36.5); MEAN CORPUSCULAR VOLUME 86.6 FL (78-98); MONOCYTES # (AUTO) 1.4 X10'3 (0-0.9); MONOCYTES % (AUTO) 6.4 % (2-12); NEUTROPHILS # (AUTO) 19.8 X10'3 (1.8-7.7); PLATELET COUNT 52 X10'3 (140-440); RED BLOOD COUNT 2.94 X10'6 (4.20-5.60); RED CELL DISTRIBUTION WIDTH 19.1 % (11.5-14.5)
[2021-12-06 02:59] LABS: ALBUMIN 2.6 G/DL (3.4-5.0); ANION GAP 9 (8-16); BLOOD UREA NITROGEN 35 MG/DL (7-18); BUN/CREATININE RATIO 28.2 (6.6-38.0); CALCIUM 8.4 MG/DL (8.5-10.1); CHLORIDE 107 MMOL/L (99-107); CREATININE 1.24 MG/DL (0.40-0.90); GLUCOSE 126 MG/DL (70-104); MAGNESIUM 2.1 MG/DL (1.5-2.4); POTASSIUM 5.5 MMOL/L (3.5-5.1); SODIUM 134 MMOL/L (135-145); TOTAL CARBON DIOXIDE 18.2 MMOL/L (24-32); eGFR 45 ML/MIN
[2021-12-06] MEDS: HYDROcodone/acetaminophen 10/325mg tab PO PRN ×2 (05:19→21:45)
[2021-12-06] MEDS: aspirin 81mg, enteric-coated 1 TAB TABLET.DR PO SCH (08:48)
[2021-12-06] MEDS: metoprolol tartrate 12.5mg (1/2 tablet) PO SCH ×2 (08:49→20:31)
[2021-12-06] MEDS: sennosides/docusate sodium tablet PO SCH ×2 (08:49→20:31)
[2021-12-06] MEDS: predniSONE 5mg tablet PO SCH (08:49)
[2021-12-06] MEDS: tacrolimus anhydrous 1mg capsule PO SCH ×2 (08:50→21:45)
[2021-12-06] MEDS: MYCOPHENOLATE MOFETIL 500 MG PO SCH ×3 (08:50→21:49)
[2021-12-06] MEDS: pantoprazole 40mg Tablet.DR PO SCH (08:52)
[2021-12-06] MEDS: insulin Lispro (HumaLOG) vial - multi-dose SQ SCH ×2 (09:01→13:47)
--- NOTE | 2021-12-06 11:08 | NUR ---
F/u 12/06: Pt extubated now A/O no longer requiring sitter per RN. Initial PO intake poor past 1.5 days and consumed 75% protein and no starch per RN this AM. Pt seen by RD for written/verbal high protein/HH diet eds w/ RD contact information provided. Pt reports appetite lower at this time, follows Mediterranean diet at home, and consumes protein drinks/bars at home. Pt is agreeable to strawberry-banana Arias smoothie BIDBL for wound healing; PA notified. Pt reports typically eats small breakfast at home of protein drink and fruit/yogurt; requests lao/light yogurt and cottage cheese w/ fruit WB dietary notified. Pt reports will have someone bring in protein bars to assist in intake this admit. RD encouraged pt to contact dietitian's office if further questions/concerns. Rec: 1. advance to carb controlled diet per MD discretion; lao/light yogurt and cottage cheese w/ fruit WB; protein bars from home 2. strawberry-banana Arias smoothie BIDBL for wound healing; pending PA verification in EMR Addendum: 12/06/21 at 1108 by Jay Quiñonez RD Amended: Links added.
[2021-12-06] MEDS: atorvastatin 10mg tablet PO SCH (20:32)
[2021-12-07] VITALS (7 sets, daily range): BP systolic 106–173; BP diastolic 32–82
[2021-12-07] MEDS ORDERED: potassium CL 10mEq/100ml bag 100 ML IV PRN (07:45)
[2021-12-07] MEDS ORDERED: magnesium 4gm in 100ml NS 100 ML IV PRN (07:45)
[2021-12-07] MEDS ORDERED: magnesium 2GM in 50ml NS 50 ML IV PRN (07:45)
[2021-12-07] MEDS ORDERED: potassium Cl 20 mEq SR tablet PO PRN (07:45)
[2021-12-07] MEDS ORDERED: potassium Cl 40MEQ/1/2NS 520ml 520 ML IV PRN (07:45)
[2021-12-07] MEDS ORDERED: potassium Cl 20mEq/100mL bag 100 ML IV PRN (07:45)
[2021-12-07] MEDS ORDERED: potassium Cl 40MEQ/250ML bag 250 ML IV PRN (07:45)
[2021-12-07] MEDS: potassium Cl 20 mEq SR tablet PO SCH ×2 (08:00→19:55)
[2021-12-07] MEDS: sennosides/docusate sodium tablet PO SCH ×2 (08:16→19:54)
[2021-12-07] MEDS: metoprolol tartrate 12.5mg (1/2 tablet) PO SCH ×2 (08:16→19:54)
[2021-12-07 08:17] LABS: BASOPHILS # (AUTO) 0.1 X10'3 (0-0.2); BASOPHILS % (AUTO) 0.3 % (0-1); EOSINOPHILS # (AUTO) 0.1 X10'3 (0-0.9); EOSINOPHILS % (AUTO) 0.5 % (0-6); HEMATOCRIT 26.7 % (35.0-45.0); HEMOGLOBIN 8.6 g/dl (12.0-16.0); LYMPHOCYTES # (AUTO) 0.8 X10'3 (1.1-4.8); LYMPHOCYTES % (AUTO) 3.9 % (21-51); MEAN CORPUSCULAR HEMOGLOBIN 28.2 PG (27.0-31.0); MEAN CORPUSCULAR HGB CONC 32.2 g/dL (33.0-36.5); MEAN CORPUSCULAR VOLUME 87.5 FL (78-98); MEAN PLATELET VOLUME 10.8 FL (7.4-10.4); MONOCYTES # (AUTO) 1.3 X10'3 (0-0.9); MONOCYTES % (AUTO) 6.1 % (2-12); NEUTROPHILS # (AUTO) 18.9 X10'3 (1.8-7.7); NEUTROPHILS % (AUTO) 89.2 % (42-75); PLATELET COUNT 81 X10'3 (140-440); RED BLOOD COUNT 3.05 X10'6 (4.20-5.60); RED CELL DISTRIBUTION WIDTH 18.1 % (11.5-14.5); WHITE BLOOD COUNT 21.2 X10'3 (4.5-11.0)
[2021-12-07] MEDS: HYDROcodone/acetaminophen 10/325mg tab PO PRN (08:18)
[2021-12-07] MEDS: predniSONE 5mg tablet PO SCH (08:18)
[2021-12-07] MEDS: pantoprazole 40mg Tablet.DR PO SCH (08:18)
[2021-12-07] MEDS: aspirin 81mg, enteric-coated 1 TAB TABLET.DR PO SCH (08:18)
[2021-12-07] MEDS: MYCOPHENOLATE MOFETIL 500 MG PO SCH ×2 (08:20→20:05)
[2021-12-07] MEDS: tacrolimus anhydrous 1mg capsule PO SCH ×2 (08:21→20:05)
[2021-12-07 08:38] LABS: LARGE PLATELETS FEW; PLATELET ESTIMATE DECREASED
[2021-12-07 08:41] LABS: ANISOCYTOSIS 2+; BURR CELLS FEW; HYPOCHROMASIA 1+; POLYCHROMASIA 1+; SCHISTOCYTES FEW
[2021-12-07 08:45] LABS: ALBUMIN 2.8 G/DL (3.4-5.0); ANION GAP 10 (8-16); BLOOD UREA NITROGEN 28 MG/DL (7-18); BUN/CREATININE RATIO 32.9 (6.6-38.0); CALCIUM 8.7 MG/DL (8.5-10.1); CHLORIDE 103 MMOL/L (99-107); CREATININE 0.85 MG/DL (0.40-0.90); GLUCOSE 195 MG/DL (70-104); POTASSIUM 4.3 MMOL/L (3.5-5.1); SODIUM 134 MMOL/L (135-145); TOTAL CARBON DIOXIDE 20.7 MMOL/L (24-32); eGFR 69 ML/MIN
[2021-12-07] MEDS: insulin Lispro (HumaLOG) vial - multi-dose SQ SCH ×3 (08:54→18:14)
[2021-12-07] MEDS ORDERED: ATOR10TA PO ×2 (09:21)
[2021-12-07] MEDS ORDERED: HYDR-3972 PO (09:24)
--- NOTE | 2021-12-07 10:25 | NUR ---
Nutrition consult: Pt admit for aortic stenosis and CAD, now POD#4 s/p AVR with root enlargement and CABG x3. Pt already seen at bedside for nutrition therapy education, see prior RD note. Pt continues on no concentrated sweets diet and PO intake is improving, up to average 63% PO intake 12/06 meeting estimated nutrient needs. Pt now to receive Arias smoothie BIDBL to assist with surgical wound healing. Pt also receiving food preferences WB and reports will have someone bring in protein bars to optimize PO intake. LBM 12/04, receiving routine bowel care with additional PRN bowel care available. D/w dietary to send prunes with next meal to further assist with bowel regularity. Will continue to follow and monitor need for additional nutrition intervention. Recommendations: 1. Continue NCS diet; monitor need for carb controlled diet 2. [place]/light yogurt and cottage cheese with fruit WB; protein bars from home 3. [place]-banana Arias smoothie BIDBL for wound healing 4. Routine bowel care 5. Weekly scaled weights Addendum: 12/07/21 at [address] Amended: Links added.
[2021-12-07 12:14] LABS: MAGNESIUM 1.8 MG/DL (1.5-2.4)
[2021-12-07] MEDS: magnesium Cl slow-release 64mg tablet PO SCH ×2 (12:36→19:54)
[2021-12-07] MEDS: JUVEN Smoothie Arginine/Glut./Ca2+Bmb (Juven 19.3pkt) 240ml cup PO SCH ×2 (12:44→16:02)
[2021-12-07] MEDS: amLODIPine 5mg tablet PO SCH (12:44)
[2021-12-07] MEDS: acetaminophen 325mg tablet PO PRN (16:06)
[2021-12-07] MEDS: atorvastatin 10mg tablet PO SCH (20:00)
[2021-12-08 02:00] VITALS: BP 148/80
[2021-12-08 06:00] VITALS: BP 186/84
--- NOTE | 2021-12-08 06:34 | NUR ---
Patient in room PCU 3022. I have received report from Cintia FARRELL and had the opportunity to ask questions and assume patient care.
[2021-12-08] MEDS: JUVEN Smoothie Arginine/Glut./Ca2+Bmb (Juven 19.3pkt) 240ml cup PO SCH (07:30)
[2021-12-08 07:46] LABS: BASOPHILS % (AUTO) 0 % (0-1); EOSINOPHILS # (AUTO) 0.3 X10'3 (0-0.9); EOSINOPHILS % (AUTO) 1.3 % (0-6); HEMOGLOBIN 7.6 g/dl (12.0-16.0); LYMPHOCYTES % (AUTO) 4.7 % (21-51); MEAN CORPUSCULAR HEMOGLOBIN 28.6 PG (27.0-31.0); MEAN CORPUSCULAR VOLUME 86.8 FL (78-98); MEAN PLATELET VOLUME 10.3 FL (7.4-10.4); MONOCYTES # (AUTO) 1.8 X10'3 (0-0.9); MONOCYTES % (AUTO) 9.1 % (2-12); NEUTROPHILS # (AUTO) 17.2 X10'3 (1.8-7.7); NEUTROPHILS % (AUTO) 84.9 % (42-75); PLATELET COUNT 91 X10'3 (140-440); RED BLOOD COUNT 2.65 X10'6 (4.20-5.60); RED CELL DISTRIBUTION WIDTH 18.5 % (11.5-14.5); WHITE BLOOD COUNT 20.3 X10'3 (4.5-11.0)
[2021-12-08 07:55] LABS: ALBUMIN 2.3 G/DL (3.4-5.0); ANION GAP 10 (8-16); BLOOD UREA NITROGEN 22 MG/DL (7-18); BUN/CREATININE RATIO 28.9 (6.6-38.0); CALCIUM 8.4 MG/DL (8.5-10.1); CHLORIDE 104 MMOL/L (99-107); CREATININE 0.76 MG/DL (0.40-0.90); GLUCOSE 121 MG/DL (70-104); POTASSIUM 4.6 MMOL/L (3.5-5.1); SODIUM 135 MMOL/L (135-145); TOTAL CARBON DIOXIDE 20.9 MMOL/L (24-32); eGFR 78 ML/MIN
[2021-12-08] MEDS: potassium Cl 20 mEq SR tablet PO SCH (08:00)
[2021-12-08] MEDS ORDERED: lisinopril 20mg tablet PO SCH (08:00)
[2021-12-08] MEDS: magnesium Cl slow-release 64mg tablet PO SCH (08:03)
[2021-12-08] MEDS: aspirin 81mg, enteric-coated 1 TAB TABLET.DR PO SCH (08:03)
[2021-12-08] MEDS: sennosides/docusate sodium tablet PO SCH (08:04)
[2021-12-08] MEDS: predniSONE 5mg tablet PO SCH (08:04)
[2021-12-08] MEDS: amLODIPine 5mg tablet PO SCH (08:04)
[2021-12-08] MEDS: pantoprazole 40mg Tablet.DR PO SCH (08:05)
[2021-12-08] MEDS: MYCOPHENOLATE MOFETIL 500 MG PO SCH (08:05)
[2021-12-08] MEDS: tacrolimus anhydrous 1mg capsule PO SCH (08:07)
[2021-12-08] MEDS ORDERED: metoprolol tartrate 50mg tablet PO SCH (08:08)
[2021-12-08] MEDS: HYDROcodone/acetaminophen 10/325mg tab PO PRN (08:21)
[2021-12-08] MEDS ORDERED: FERR325T28 PO (09:12)
[2021-12-08] MEDS ORDERED: FOLI1TAB27 PO (09:13)
[2021-12-08] MEDS: insulin Lispro (HumaLOG) vial - multi-dose SQ SCH (09:27)
[2021-12-08 10:47] VITALS: BP 104/47
[2021-12-08 13:15] VITALS: BP 104/60
== END 2021-12-08 13:23 | disposition home health service (06) | DRG 219 ==
LOC: PAS IN 06:06 → ICU 2S 12:35 → PCU 3S 12-06 14:35
PROVIDERS: ADMIT Thoracic Surgery (Cardiothoracic Vascular Surgery); ATTEND Thoracic Surgery (Cardiothoracic Vascular Surgery)
PROC: 02UX08Z Supplement Thoracic Aorta, Ascending/Arch with Zooplastic Tissue, Open Approach (ICD-10-PCS; 2021-12-03)
PROC: 02100Z9 Bypass Coronary Artery, One Artery from Left Internal Mammary, Open Approach (ICD-10-PCS; 2021-12-03)
PROC: 021109W Bypass Coronary Artery, Two Arteries from Aorta with Autologous Venous Tissue, Open Approach (ICD-10-PCS; 2021-12-03)
PROC: 06BQ4ZZ Excision of Left Saphenous Vein, Percutaneous Endoscopic Approach (ICD-10-PCS; 2021-12-03)
PROC: 5A1221Z Performance of Cardiac Output, Continuous (ICD-10-PCS; 2021-12-03)
PROC: B24BZZ4 Ultrasonography of Heart with Aorta, Transesophageal (ICD-10-PCS; 2021-12-03)
PROC: 30233N1 Transfusion of Nonautologous Red Blood Cells into Peripheral Vein, Percutaneous Approach (ICD-10-PCS; 2021-12-03)
PROC: 02H633Z Insertion of Infusion Device into Right Atrium, Percutaneous Approach (ICD-10-PCS; 2021-12-03)
PROC: B548ZZA Ultrasonography of Superior Vena Cava, Guidance (ICD-10-PCS; 2021-12-03)
PROC: 03HY32Z Insertion of Monitoring Device into Upper Artery, Percutaneous Approach (ICD-10-PCS; 2021-12-03)
PROC: 02RF08Z Replacement of Aortic Valve with Zooplastic Tissue, Open Approach (ICD-10-PCS; principal; 2021-12-03 07:57)
DX: I35.0 Nonrheumatic aortic (valve) stenosis (principal); N17.0 Acute kidney failure with tubular necrosis; J98.11 Atelectasis; D62 Acute posthemorrhagic anemia; Z94.0 Kidney transplant status; Z94.83 Pancreas transplant status; D84.81 Immunodeficiency due to conditions classified elsewhere; T83.83XA Hemorrhage due to genitourinary prosthetic devices, implants and grafts, initial encounter; E78.00 Pure hypercholesterolemia, unspecified; I25.10 Atherosclerotic heart disease of native coronary artery without angina pectoris; D69.6 Thrombocytopenia, unspecified; E10.22 Type 1 diabetes mellitus with diabetic chronic kidney disease; I12.9 Hypertensive chronic kidney disease with stage 1 through stage 4 chronic kidney disease, or unspecified chronic kidney disease; N18.9 Chronic kidney disease, unspecified; E10.9 Type 1 diabetes mellitus without complications; R31.9 Hematuria, unspecified
CPT/HCPCS: 36415; 36430; 36600; 71045; 71046; 76376; 80048; 80053; 81001; 81003; 82330; 82435; 82570; 82803; 82947; 82948; 83036; 83735; 84100; 84132; 84156; 84295; 84300; 85008; 85018; 85025; 85027; 85347; 85610; 85730; 86885; 86900; 86901; 86920; 87081; 87207; 87635; 88300; 93005; 93312; 93325; 93971; 94002; 94667; 94760; 97116; 97161; 97530; A4618; A6258; A6446; A6449; A7000; A7048; C1751; C1768; G0378; J0171; J0360; J0690; J1170; J1644; J1815; J1940; J2150; J2250; J2405; J2720; J2765; J2930; J3010; J3370; J3480; J3490; J7030; J7040; J7050; J7120; J7512; P9016; P9045; P9047

== ENCOUNTER 2021-12-14 08:18 | Inpatient (IN) | payer MEDICARE, BC ==
[~2021-12-14] VITALS: Ht 149.9 cm; Wt 53.3 kg
[~2021-12-14 08:18] MED LIST changes: +ATOR10TA PO; -DOCUMENT DATE & TIME OF BETA-BLOCKER PO ONE; +FERR325T28 PO; +FOLI1TAB27 PO; +HYDR-3972 PO; -MIDAZolam 1 MG/ML 5ML VIAL IV ONE; -ceFAZolin 1000mg inj ONE; -cefazolin/dext.iso 2gm/50ml IV ONE; -epiNEPHrine 1 mg/ml inj ONE; -famotidine 20mg tablet PO ONE; -mupirocin 2% nasal ointment 1gm UD NS ONE; -ringers solution, lacted 1,000 ML IV SCH
[2021-12-14 09:01] LABS: BASOPHILS # (AUTO) 0.1 X10'3 (0-0.2); BASOPHILS % (AUTO) 0.3 % (0-1); EOSINOPHILS # (AUTO) 0.1 X10'3 (0-0.9)
[2021-12-14 09:03] LABS: EOSINOPHILS % (AUTO) 0.5 % (0-6); HEMATOCRIT 23.4 % (35.0-45.0); HEMOGLOBIN 7.5 g/dl (12.0-16.0); LYMPHOCYTES # (AUTO) 0.7 X10'3 (1.1-4.8); LYMPHOCYTES % (AUTO) 3.5 % (21-51); MEAN CORPUSCULAR HGB CONC 31.8 g/dL (33.0-36.5); MEAN CORPUSCULAR VOLUME 87.8 FL (78-98); MEAN PLATELET VOLUME 9.3 FL (7.4-10.4); MONOCYTES # (AUTO) 1.1 X10'3 (0-0.9); NEUTROPHILS # (AUTO) 19.2 X10'3 (1.8-7.7); NEUTROPHILS % (AUTO) 90.7 % (42-75); PLATELET COUNT 417 X10'3 (140-440); RED BLOOD COUNT 2.67 X10'6 (4.20-5.60); RED CELL DISTRIBUTION WIDTH 20.3 % (11.5-14.5); WHITE BLOOD COUNT 21.2 X10'3 (4.5-11.0)
[2021-12-14 09:12] LABS: ALANINE AMINOTRANSFERASE 23 U/L (12-78); ALBUMIN 2.8 G/DL (3.4-5.0); ALBUMIN/GLOBULIN RATIO 0.9 (1.1-1.5); ALKALINE PHOSPHATASE 102 IU/L (46-116); ANION GAP 11 (8-16); ASPARTATE AMINO TRANSFERASE 22 U/L (10-37); BILIRUBIN,TOTAL 0.7 MG/DL (0.1-1.0); BLOOD UREA NITROGEN 21 MG/DL (7-18); BUN/CREATININE RATIO 29.6 (6.6-38.0); CALCIUM 8.6 MG/DL (8.5-10.1); CHLORIDE 103 MMOL/L (99-107); CREATININE 0.71 MG/DL (0.40-0.90); GLUCOSE 196 MG/DL (70-104); POTASSIUM 4.3 MMOL/L (3.5-5.1); SODIUM 137 MMOL/L (135-145); TOTAL CARBON DIOXIDE 22.6 MMOL/L (24-32); eGFR 85 ML/MIN
[2021-12-14] MEDS ORDERED: cefepime 1GM/NS ADD-VANTAGE 100 ML IV ONE ×2 (09:35→15:40)
--- NOTE | 2021-12-14 10:18 | NUR ---
IR AT BEDSIDE FOR THORACENTESIS
[2021-12-14 10:41] VITALS: BP 126/75
[2021-12-14 10:47] LABS: NUCLEATED RED BLOOD CELLS 1 /100WBC (0-0); TOTAL CELLS COUNTED 100
[2021-12-14 10:48] LABS: ANISOCYTOSIS 3+; HYPOCHROMASIA 1+; PLATELET ESTIMATE NORMAL; POLYCHROMASIA 3+; TARGET CELLS FEW
[2021-12-14 10:49] VITALS: BP 99/79
[2021-12-14 10:49] LABS: SCHISTOCYTES FEW
[2021-12-14 10:50] LABS: BURR CELLS 1+
[2021-12-14 11:58] LABS: LYMPHOCYTES,BODY FLUID 26 %; MONOCYTES,BODY FLUID 10 %; NEUTROPHILS,BODY FLUID 64 %
[2021-12-14 11:59] LABS: BFAPPEAR BLOODY
[2021-12-14 12:00] LABS: BF RBC COUNT 187500 /CU MM; BF WBC COUNT 1250 /CU MM (0-1000); BFCOLOR RED; BFVOLUME 62 ML
[2021-12-14] MEDS ORDERED: ATOR10TA70 PO (12:28)
[2021-12-14] MEDS ORDERED: mag hydrox/Alum hydrox/simeth 30ml oral suspension PO PRN (15:35)
[2021-12-14] MEDS ORDERED: ondansetron/PF 4mg/2ml inj IV PRN (15:35)
[2021-12-14] MEDS ORDERED: magnesium 4gm in 100ml NS 100 ML IV PRN (15:35)
[2021-12-14] MEDS ORDERED: potassium CL 10mEq/100ml bag 100 ML IV PRN (15:35)
[2021-12-14] MEDS ORDERED: naloxone 0.4 mg/ml inj IV PRN (15:35)
[2021-12-14] MEDS ORDERED: magnesium hydroxide 30ml (MOM) UD suspension PO PRN (15:35)
[2021-12-14] MEDS ORDERED: HYDROmorphone/PF 0.2 MG/ML SYRINGE IV PRN (15:35)
[2021-12-14] MEDS ORDERED: magnesium Cl slow-release 64mg tablet PO PRN (15:35)
[2021-12-14] MEDS ORDERED: potassium Cl 20 mEq SR tablet PO PRN ×2 (15:35)
[2021-12-14] MEDS ORDERED: magnesium 2GM in 50ml NS 50 ML IV PRN (15:35)
[2021-12-14 17:31] LABS: MAGNESIUM 1.7 MG/DL (1.5-2.4); POTASSIUM 4.6 MMOL/L (3.5-5.1)
[2021-12-14] MEDS ORDERED: INSULIN LISPRO 1 UNIT SQ PRN (17:40)
[2021-12-14] MEDS ORDERED: glucagon, human recombinant 1mg kit SUBCUT PRN (18:20)
[2021-12-14] MEDS ORDERED: MESSAGE TO PHARMACY PO ONE (18:20)
[2021-12-14] MEDS ORDERED: dextrose 50%-water 50ml dispensing syringe IV PRN ×2 (18:20)
[2021-12-14] MEDS ORDERED: DEXTROSE 15 GM of carb/4 tabs (each vial/BOTTLE has 4 tablets) PO PRN ×2 (18:20)
[2021-12-14] MEDS: furosemide 10 MG/1 ML 10ml inj IV SCH (19:25)
[2021-12-14 20:00] VITALS: BP 142/62
[2021-12-14] MEDS ORDERED: cefepime 2g/NS 100ml ADVANTAGE 100 ML IV SCH (20:00)
[2021-12-14] MEDS: docusate sod 100mg capsule PO SCH (20:00)
[2021-12-14] MEDS: K and/or MAG REPLACEMENT MC SCH (20:00)
[2021-12-14] MEDS: Insulin Degludec (Tresiba Flextouch U-100) SQ SCH (21:00)
[2021-12-14] MEDS: atorvastatin 10mg tablet PO SCH (21:58)
[2021-12-14] MEDS: mycophenolate mofetil 250mg capsule PO SCH (21:59)
[2021-12-14 22:00] VITALS: BP 153/56
[2021-12-14] MEDS: metoprolol tartrate 50mg tablet PO SCH (22:00)
[2021-12-14] MEDS: tacrolimus anhydrous 1mg capsule PO SCH (22:01)
--- NOTE | 2021-12-15 01:48 | NUR ---
This is a 55-year-old female, admitted 12/14/2021, new admission, Full code, Several allergies noted, No isolation, No restraints. Pt came to the Emergency Room with a complaint of shortness of breath. She recently had a CABG x 3 and aortic valve replacement done by Dr. Peter on 12/03/2021 and the patient was discharged on 12/08/2021 by Cardiothoracic team. The patient came to the ER, evaluated. She is hypoxic and the patient underwent chest x-ray, which shows diffuse left lung airspace disease and also pulmonary edema. The patient was recommended to be admitted. She underwent thoracocentesis in the ER by IR and had 1015 mL of fluid removed and the patient is feeling slightly better. She does complain of cough with purulent sputum production. She does not report any fever. The patient has elevated white count of 21.[address] Fernandez, Cardiothoracic surgeon has been contacted by ER physician and he has recommended to admit the patient. Admitted to Room PCU 3011, Currently pt is in room 8 A. Currently AA, completely confused to person place time and situation. Pt is with a sitter at bedside for safety. Pt is afebrile, with expressive aphasia. notable gross generalized weakness with 1to 2 person asst. Monitor #20, HR SR 93, BP 146/64 weak pulses, no edema. No IVF. IV access RAC. RR 16 PO 98% 3L non productive wet cough. Breath sounds with I/E fine wheezes. No labored. Hypoactive bowel sounds, soft non tender, non distended, Pancreatic transplant 1998. Glucose checks AC/HS, HS glucose 96. Voids via BSC with max asst of one. Skin dry, intact with Midline chest incision from previous CABG/ Aortic valve replacement. And Left inner thigh with sutures for CABG. Pt remains safe. continue to monitor.
[2021-12-15 02:55] VITALS: BP 109/38
[2021-12-15] MEDS: CEFEPIME 2 GM in NS 100ml IV.SOLN 100 ML IV SCH ×2 (03:31→15:52)
[2021-12-15 07:03] LABS: EOSINOPHILS % (AUTO) 0.2 % (0-6); HEMATOCRIT 24.4 % (35.0-45.0); MEAN CORPUSCULAR HEMOGLOBIN 28.7 PG (27.0-31.0); RED BLOOD COUNT 2.77 X10'6 (4.20-5.60)
[2021-12-15 07:08] LABS: BASOPHILS % (AUTO) 0.1 % (0-1); LYMPHOCYTES # (AUTO) 0.9 X10'3 (1.1-4.8); LYMPHOCYTES % (AUTO) 4.3 % (21-51); MEAN CORPUSCULAR HGB CONC 32.6 g/dL (33.0-36.5); MEAN CORPUSCULAR VOLUME 88.2 FL (78-98); MONOCYTES # (AUTO) 1.3 X10'3 (0-0.9); MONOCYTES % (AUTO) 5.8 % (2-12); NEUTROPHILS # (AUTO) 19.3 X10'3 (1.8-7.7); NEUTROPHILS % (AUTO) 89.6 % (42-75); PLATELET COUNT 420 X10'3 (140-440); RED CELL DISTRIBUTION WIDTH 19.4 % (11.5-14.5); WHITE BLOOD COUNT 21.6 X10'3 (4.5-11.0)
[2021-12-15 07:20] LABS: ALANINE AMINOTRANSFERASE 22 U/L (12-78); ALBUMIN 2.6 G/DL (3.4-5.0); ALBUMIN/GLOBULIN RATIO 0.8 (1.1-1.5); ALKALINE PHOSPHATASE 91 IU/L (46-116); ANION GAP 11 (8-16); ASPARTATE AMINO TRANSFERASE 20 U/L (10-37); BILIRUBIN,TOTAL 0.8 MG/DL (0.1-1.0); BLOOD UREA NITROGEN 20 MG/DL (7-18); BUN/CREATININE RATIO 21.7 (6.6-38.0); CALCIUM 8.6 MG/DL (8.5-10.1); CHLORIDE 103 MMOL/L (99-107); CREATININE 0.92 MG/DL (0.40-0.90); GLUCOSE 126 MG/DL (70-104); POTASSIUM 4.5 MMOL/L (3.5-5.1); SODIUM 136 MMOL/L (135-145); TOTAL CARBON DIOXIDE 22.4 MMOL/L (24-32); TOTAL PROTEIN 5.7 G/DL (6.4-8.2); eGFR 63 ML/MIN
[2021-12-15 07:49] LABS: ANISOCYTOSIS 2+; PLATELET ESTIMATE NORMAL; POIKILOCYTOSIS FEW; POLYCHROMASIA 2+; TARGET CELLS FEW
[2021-12-15] MEDS: K and/or MAG REPLACEMENT MC SCH ×2 (08:00→19:48)
[2021-12-15] MEDS ORDERED: LIRAGLUTIDE 0.6 MG/0.1 ML PEN.INJCTR SQ SCH (08:00)
[2021-12-15] MEDS: furosemide 10 MG/1 ML 10ml inj IV SCH ×2 (08:00→19:46)
[2021-12-15] MEDS: ezetimibe 10mg tablet PO SCH (08:49)
[2021-12-15] MEDS: lisinopril 20mg tablet PO SCH (08:50)
[2021-12-15] MEDS: amLODIPine 5mg tablet PO SCH (08:50)
[2021-12-15] MEDS: docusate sod 100mg capsule PO SCH ×2 (08:50→19:47)
[2021-12-15] MEDS: tacrolimus anhydrous 1mg capsule PO SCH ×2 (08:51→19:46)
[2021-12-15] MEDS: metoprolol tartrate 50mg tablet PO SCH ×2 (08:51→19:47)
[2021-12-15] MEDS: mycophenolate mofetil 250mg capsule PO SCH ×2 (08:51→20:23)
[2021-12-15] MEDS: predniSONE 5mg tablet PO SCH (08:52)
[2021-12-15 09:14] VITALS: BP 115/65
[2021-12-15 11:43] VITALS: BP 129/57
[2021-12-15] MEDS: insulin Lispro (HumaLOG) vial - multi-dose SQ SCH (13:17)
[2021-12-15] MEDS: ipratropium/albuterol 3ml nebule IH SCH ×3 (14:00→20:03)
[2021-12-15 15:15] VITALS: BP 116/56
[2021-12-15] MEDS: vancomycin/NS 1 GM ADD-VANTAGE 250 ML IV SCH ×2 (17:48→20:00)
[2021-12-15 18:00] VITALS: BP 117/55
[2021-12-15] MEDS: Insulin Degludec (Tresiba Flextouch U-100) SQ SCH (20:23)
[2021-12-15] MEDS: atorvastatin 10mg tablet PO SCH (20:23)
[2021-12-15 22:00] VITALS: BP 128/70
--- NOTE | 2021-12-16 01:46 | NUR ---
This is a 55-year-old female, admitted 12/14/2021, day 1 of hospitalization, Full code, Several allergies noted, No isolation, No restraints. Pt came to the Emergency Room with a complaint of shortness of breath. She recently had a CABG x 3 and aortic valve replacement done by Dr. Peter on 12/03/2021 and the patient was discharged on 12/08/2021 by Cardiothoracic team. The patient came to the ER, evaluated. She is hypoxic and the patient underwent chest x-ray, which shows diffuse left lung airspace disease and also pulmonary edema. The patient was recommended to be admitted. She underwent thoracocentesis in the ER by IR and had 1250 mL of bloody fluid removed and the patient is feeling slightly better. She does complain of cough with purulent sputum production. She does not report any fever. The patient has elevated white count of 21.[address] Fernandez, Cardiothoracic surgeon has been contacted by ER physician and he has recommended to admit the patient. Currently, AA, confused to person place time and situation. Pt is with a sitter at bedside for safety. Pt is afebrile, with expressive aphasia. notable gross generalized weakness with 1to 2 person asst. Monitor #20, HR SR 93, BP 146/64 weak pulses, no edema. No IVF. IV access RAC. RR 16 PO 98% 3L non productive wet cough. Breath sounds with fine wheezes. Non labored. Hypoactive bowel sounds, soft, non tender, non distended, Pancreatic transplant 1998. Glucose checks AC/HS. Voids via BSC with max asst of one. Pt had Lasix 40 mg with little out. Skin dry, intact with Midline chest incision from previous CABG/ Aortic valve replacement. And Left inner thigh with sutures for CABG. Pt remains safe. continue to monitor.
[2021-12-16 02:00] VITALS: BP 126/74
[2021-12-16] MEDS: ipratropium/albuterol 3ml nebule IH SCH ×4 (02:00→20:24)
[2021-12-16] MEDS: CEFEPIME 2 GM in NS 100ml IV.SOLN 100 ML IV SCH ×2 (03:49→16:27)
[2021-12-16] MEDS: vancomycin/NS 1 GM ADD-VANTAGE 250 ML IV SCH (04:03)
[2021-12-16 06:00] VITALS: BP 133/68
[2021-12-16 06:47] LABS: BASOPHILS % (AUTO) 0.2 % (0-1); EOSINOPHILS # (AUTO) 0.1 X10'3 (0-0.9); EOSINOPHILS % (AUTO) 0.2 % (0-6); HEMATOCRIT 22.9 % (35.0-45.0); HEMOGLOBIN 7.4 g/dl (12.0-16.0); LYMPHOCYTES % (AUTO) 4.3 % (21-51); MEAN CORPUSCULAR HEMOGLOBIN 28.2 PG (27.0-31.0); MEAN CORPUSCULAR HGB CONC 32.3 g/dL (33.0-36.5); MEAN CORPUSCULAR VOLUME 87.3 FL (78-98); MEAN PLATELET VOLUME 9.1 FL (7.4-10.4); MONOCYTES # (AUTO) 1.4 X10'3 (0-0.9); NEUTROPHILS % (AUTO) 89.3 % (42-75); PLATELET COUNT 361 X10'3 (140-440); RED BLOOD COUNT 2.63 X10'6 (4.20-5.60); RED CELL DISTRIBUTION WIDTH 20.1 % (11.5-14.5); WHITE BLOOD COUNT 22.4 X10'3 (4.5-11.0)
[2021-12-16 06:52] LABS: ALANINE AMINOTRANSFERASE 17 U/L (12-78); ALBUMIN 2.2 G/DL (3.4-5.0); ALBUMIN/GLOBULIN RATIO 0.7 (1.1-1.5); ALKALINE PHOSPHATASE 84 IU/L (46-116); ANION GAP 11 (8-16); ASPARTATE AMINO TRANSFERASE 17 U/L (10-37); BILIRUBIN,TOTAL 0.6 MG/DL (0.1-1.0); BLOOD UREA NITROGEN 22 MG/DL (7-18); CALCIUM 8.2 MG/DL (8.5-10.1); CHLORIDE 103 MMOL/L (99-107); GLUCOSE 183 MG/DL (70-104); POTASSIUM 4.2 MMOL/L (3.5-5.1); SODIUM 135 MMOL/L (135-145); TOTAL CARBON DIOXIDE 20.9 MMOL/L (24-32); TOTAL PROTEIN 5.3 G/DL (6.4-8.2); eGFR 57 ML/MIN
[2021-12-16] MEDS: K and/or MAG REPLACEMENT MC SCH ×2 (08:00→20:00)
[2021-12-16] MEDS: LIRAGLUTIDE 0.6 MG/0.1 ML PEN.INJCTR SQ SCH (08:00)
[2021-12-16] MEDS: insulin Lispro (HumaLOG) vial - multi-dose SQ SCH ×4 (09:14→22:40)
[2021-12-16] MEDS: tacrolimus anhydrous 1mg capsule PO SCH ×2 (09:17→20:22)
[2021-12-16] MEDS: mycophenolate mofetil 250mg capsule PO SCH ×2 (09:18→20:20)
[2021-12-16] MEDS: metoprolol tartrate 50mg tablet PO SCH ×2 (09:19→20:19)
[2021-12-16] MEDS: aspirin 81mg, enteric-coated 1 TAB TABLET.DR PO SCH (09:19)
[2021-12-16] MEDS: amLODIPine 5mg tablet PO SCH (09:20)
[2021-12-16] MEDS: predniSONE 5mg tablet PO SCH (09:20)
[2021-12-16] MEDS: furosemide 10 MG/1 ML 10ml inj IV SCH ×2 (09:28→20:16)
[2021-12-16] MEDS: docusate sod 100mg capsule PO SCH ×2 (09:29→20:00)
[2021-12-16] MEDS: ezetimibe 10mg tablet PO SCH (09:33)
[2021-12-16] MEDS: lisinopril 20mg tablet PO SCH (09:33)
[2021-12-16 11:00] VITALS: BP 111/64
[2021-12-16] MEDS: acetaminophen 325mg tablet PO PRN (12:13)
[2021-12-16 15:00] VITALS: BP 114/49
--- NOTE | 2021-12-16 18:25 | NUR ---
Problems reprioritized. Patient report given, questions answered & plan of care reviewed with Zee FARRELL.
[2021-12-16 18:30] VITALS: BP 119/52
--- NOTE | 2021-12-16 18:30 | NUR ---
Patient in room U 3028. I have received report from BUD Alvarez and had the opportunity to ask questions and assume patient care. Addendum: 12/17/21 at 0217 by Yohana Tucker RN Amended: Links added.
[2021-12-16] MEDS: atorvastatin 10mg tablet PO SCH (20:18)
[2021-12-16] MEDS: enoxaparin 40mg/0.4ml syringe SUBCUT SCH (20:19)
[2021-12-16] MEDS: Insulin Degludec (Tresiba Flextouch U-100) SQ SCH (21:00)
[2021-12-16 22:30] VITALS: BP 97/40
--- NOTE | 2021-12-16 22:37 | NUR ---
Pt home insulin not here or in pharmacy. Pt called spouse and he will bring insulin in the morning.
[2021-12-17] VITALS (9 sets, daily range): BP systolic 94–121; BP diastolic 46–63
[2021-12-17] MEDS: acetaminophen 325mg tablet PO PRN (01:13)
[2021-12-17] MEDS: HYDROcodone/acetaminophen 5mg/325mg tablet PO PRN (02:53)
--- NOTE | 2021-12-17 02:56 | NUR ---
c/o incisional pain mid sternum after coughing, enc to use pillow to splint. norco given pt repositioned for comfort. Addendum: 12/17/21 at 0257 by Yohana Tucker RN Amended: Links added.
[2021-12-17] MEDS: CEFEPIME 2 GM in NS 100ml IV.SOLN 100 ML IV SCH ×2 (03:40→16:00)
[2021-12-17] MEDS: vancomycin/NS 1 GM ADD-VANTAGE 250 ML X 1 DOSE IV SCH (04:16)
[2021-12-17] MEDS: ipratropium/albuterol 3ml nebule IH SCH ×4 (04:16→20:58)
[2021-12-17 05:37] LABS: BASOPHILS % (AUTO) 0.2 % (0-1); EOSINOPHILS # (AUTO) 0.2 X10'3 (0-0.9); EOSINOPHILS % (AUTO) 1.1 % (0-6); LYMPHOCYTES # (AUTO) 1.3 X10'3 (1.1-4.8); LYMPHOCYTES % (AUTO) 6.4 % (21-51); MEAN CORPUSCULAR HEMOGLOBIN 27.8 PG (27.0-31.0); MEAN CORPUSCULAR HGB CONC 31.7 g/dL (33.0-36.5); MEAN CORPUSCULAR VOLUME 87.7 FL (78-98); MEAN PLATELET VOLUME 9.2 FL (7.4-10.4); MONOCYTES # (AUTO) 1.4 X10'3 (0-0.9); MONOCYTES % (AUTO) 6.8 % (2-12); NEUTROPHILS # (AUTO) 17.1 X10'3 (1.8-7.7); NEUTROPHILS % (AUTO) 85.5 % (42-75); PLATELET COUNT 336 X10'3 (140-440); RED BLOOD COUNT 2.48 X10'6 (4.20-5.60)
[2021-12-17 05:41] LABS: HEMOGLOBIN 6.9 g/dl (12.0-16.0)
[2021-12-17 05:42] LABS: HEMATOCRIT 21.7 % (35.0-45.0)
[2021-12-17 05:58] LABS: ALANINE AMINOTRANSFERASE 20 U/L (12-78); ALBUMIN/GLOBULIN RATIO 0.6 (1.1-1.5); ALKALINE PHOSPHATASE 79 IU/L (46-116); ASPARTATE AMINO TRANSFERASE 23 U/L (10-37); BILIRUBIN,TOTAL 0.5 MG/DL (0.1-1.0); BLOOD UREA NITROGEN 25 MG/DL (7-18); BUN/CREATININE RATIO 26.3 (6.6-38.0); CALCIUM 8.4 MG/DL (8.5-10.1); CHLORIDE 101 MMOL/L (99-107); CREATININE 0.95 MG/DL (0.40-0.90); GLUCOSE 163 MG/DL (70-104); POTASSIUM 4.1 MMOL/L (3.5-5.1); SODIUM 131 MMOL/L (135-145); TOTAL PROTEIN 5.2 G/DL (6.4-8.2); eGFR 61 ML/MIN
[2021-12-17 06:02] LABS: ANISOCYTOSIS 2+; BURR CELLS FEW; PLATELET ESTIMATE NORMAL; POLYCHROMASIA FEW; SCHISTOCYTES FEW; TOTAL CELLS COUNTED 100
[2021-12-17 06:03] LABS: ACANTHOCYTES FEW
[2021-12-17 06:11] LABS: ANION GAP 8 (8-16); TOTAL CARBON DIOXIDE 21.9 MMOL/L (24-32)
--- NOTE | 2021-12-17 06:17 | NUR ---
Problems reprioritized. Patient report given, questions answered & plan of care reviewed with RN. Addendum: 12/17/21 at 0617 by Yohana Tucker RN Amended: Links added.
--- NOTE | 2021-12-17 06:39 | NUR ---
Patient in room PCU 3028. I have received report from Diana FARRELL and had the opportunity to ask questions and assume patient care. Patient is resting in bed in no acute distress.
[2021-12-17] MEDS: LIRAGLUTIDE 0.6 MG/0.1 ML PEN.INJCTR SQ SCH (08:00)
[2021-12-17] MEDS: K and/or MAG REPLACEMENT MC SCH ×2 (08:00→20:00)
[2021-12-17] MEDS: amLODIPine 5mg tablet PO SCH (08:08)
[2021-12-17] MEDS: docusate sod 100mg capsule PO SCH ×2 (08:08→21:01)
[2021-12-17] MEDS: ezetimibe 10mg tablet PO SCH (08:08)
[2021-12-17] MEDS: furosemide 10 MG/1 ML 10ml inj IV SCH ×3 (08:08→21:00)
[2021-12-17] MEDS: lisinopril 20mg tablet PO SCH (08:09)
[2021-12-17] MEDS: metoprolol tartrate 50mg tablet PO SCH ×2 (08:09→21:01)
[2021-12-17] MEDS: tacrolimus anhydrous 1mg capsule PO SCH ×2 (08:10→21:01)
[2021-12-17] MEDS: mycophenolate mofetil 250mg capsule PO SCH ×2 (08:10→21:01)
[2021-12-17] MEDS: insulin Lispro (HumaLOG) vial - multi-dose SQ SCH ×3 (08:16→19:08)
[2021-12-17] MEDS: predniSONE 5mg tablet PO SCH (09:03)
--- NOTE | 2021-12-17 09:30 | NUR ---
DM Consult: Pt hx T1DM A1C 6.7% per EMR. A1C appropriate at this time. Addendum: 12/17/21 at 0930 by Jay Quiñonez RD Amended: Links added.
--- NOTE | 2021-12-17 11:31 | NUR ---
Page Sent promotional table spacer PAGER ID: [phone] MESSAGE: [id number] Carias. I need consent to give blood signed please. I can bring it to you. Tamika [id number]
--- NOTE | 2021-12-17 17:53 | NUR ---
Page Sent promotional table spacer PAGER ID: [phone] MESSAGE: [id number] Carias. IV infiltrated at the end of blood administration. Unable to obtain IV access. 1600 antibiotic not given due to no access. Tamika [id number]
--- NOTE | 2021-12-17 17:53 | NUR ---
IV infiltrated at end of blood administration. After multiple RNs tried no access was able to be obtained. Dr. Arteaga notified by page.
--- NOTE | 2021-12-17 18:17 | NUR ---
Problems reprioritized. Patient report given, questions answered & plan of care reviewed with Yoon FARRELL . Patient resting in bed in no acute distress.
[2021-12-17] MEDS: enoxaparin 40mg/0.4ml syringe SUBCUT SCH (21:01)
[2021-12-17] MEDS: atorvastatin 10mg tablet PO SCH (21:01)
[2021-12-17] MEDS: Insulin Degludec (Tresiba Flextouch U-100) SQ SCH (21:02)
[2021-12-18] MEDS: HYDROcodone/acetaminophen 5mg/325mg tablet PO PRN ×2 (01:44→10:42)
[2021-12-18 02:00] VITALS: BP 129/70
[2021-12-18] MEDS: ipratropium/albuterol 3ml nebule IH SCH ×4 (02:34→20:10)
[2021-12-18] MEDS: vancomycin/NS 1 GM ADD-VANTAGE 250 ML X 1 DOSE IV SCH (04:00)
[2021-12-18] MEDS: CEFEPIME 2 GM in NS 100ml IV.SOLN 100 ML IV SCH (04:00)
--- NOTE | 2021-12-18 05:08 | NUR ---
PATIENTS IV INFILTRATED ON DAY SHIFT YESTERDAY. ATTEMPTED TO REPLACE IV UNSUCCESSFUL. WILL ATTEMPT TO HAVE PICC PLACE A LINE TODAY.
[2021-12-18 07:00] VITALS: BP 117/60
--- NOTE | 2021-12-18 07:27 | NUR ---
page to PICC RN [id number] Jv. PT needs PIV for antibiotics. unable to obtain access yesterday. Restriction on the left - fistula. Tamika
[2021-12-18 07:37] LABS: BASOPHILS % (AUTO) 0.3 % (0-1); EOSINOPHILS # (AUTO) 0.2 X10'3 (0-0.9); EOSINOPHILS % (AUTO) 1.7 % (0-6); HEMATOCRIT 29.4 % (35.0-45.0); HEMOGLOBIN 9.7 g/dl (12.0-16.0); LYMPHOCYTES # (AUTO) 1.4 X10'3 (1.1-4.8); LYMPHOCYTES % (AUTO) 9.8 % (21-51); MEAN CORPUSCULAR HEMOGLOBIN 28.7 PG (27.0-31.0); MEAN CORPUSCULAR HGB CONC 32.9 g/dL (33.0-36.5); MEAN CORPUSCULAR VOLUME 87.2 FL (78-98); MEAN PLATELET VOLUME 9.2 FL (7.4-10.4); MONOCYTES # (AUTO) 1.1 X10'3 (0-0.9); MONOCYTES % (AUTO) 7.4 % (2-12); NEUTROPHILS # (AUTO) 11.5 X10'3 (1.8-7.7); NEUTROPHILS % (AUTO) 80.8 % (42-75); PLATELET COUNT 409 X10'3 (140-440); RED BLOOD COUNT 3.38 X10'6 (4.20-5.60); RED CELL DISTRIBUTION WIDTH 19.1 % (11.5-14.5); WHITE BLOOD COUNT 14.3 X10'3 (4.5-11.0)
[2021-12-18 07:53] LABS: ALANINE AMINOTRANSFERASE 28 U/L (12-78); ALBUMIN 2.4 G/DL (3.4-5.0); ALBUMIN/GLOBULIN RATIO 0.7 (1.1-1.5); ALKALINE PHOSPHATASE 91 IU/L (46-116); ANION GAP 9 (8-16); ASPARTATE AMINO TRANSFERASE 24 U/L (10-37); BILIRUBIN,TOTAL 0.5 MG/DL (0.1-1.0); BLOOD UREA NITROGEN 25 MG/DL (7-18); BUN/CREATININE RATIO 27.2 (6.6-38.0); CHLORIDE 105 MMOL/L (99-107); CREATININE 0.92 MG/DL (0.40-0.90); GLUCOSE 163 MG/DL (70-104); POTASSIUM 4.7 MMOL/L (3.5-5.1); SODIUM 138 MMOL/L (135-145); eGFR 63 ML/MIN
[2021-12-18] MEDS: K and/or MAG REPLACEMENT MC SCH ×2 (08:00→20:00)
[2021-12-18] MEDS: LIRAGLUTIDE 0.6 MG/0.1 ML PEN.INJCTR SQ SCH (08:00)
[2021-12-18] MEDS: furosemide 10 MG/1 ML 10ml inj IV SCH (08:00)
[2021-12-18] MEDS: amLODIPine 5mg tablet PO SCH (08:32)
[2021-12-18] MEDS: docusate sod 100mg capsule PO SCH ×2 (08:32→19:43)
[2021-12-18] MEDS: mycophenolate mofetil 250mg capsule PO SCH ×2 (08:32→21:01)
[2021-12-18] MEDS: aspirin 81mg, enteric-coated 1 TAB TABLET.DR PO SCH (08:32)
[2021-12-18] MEDS: metoprolol tartrate 50mg tablet PO SCH ×2 (08:32→19:42)
[2021-12-18] MEDS: tacrolimus anhydrous 1mg capsule PO SCH ×2 (08:33→21:00)
[2021-12-18] MEDS: lisinopril 20mg tablet PO SCH (08:33)
[2021-12-18] MEDS: predniSONE 5mg tablet PO SCH (08:33)
[2021-12-18] MEDS: ezetimibe 10mg tablet PO SCH (08:33)
--- NOTE | 2021-12-18 08:36 | NUR ---
Initial: Pt admitted w/ acute hypoxemia secondary to PNA vs pleural effusions per EMR. Currently on Carb controlled diet w/ moderate PO intake, avg 62% of meals partially meeting needs. Pt had CABG and AVR about 2 weeks ago per EMR, could benefit from Arias smoothies to assist w/ wound healing. LBM 12/16 receiving routine colace. Will continue to monitor. Recs: 1. Continue Carb controlled diet as tolerated 2. Arias smoothies BIDBD; pending MD verification 3. Bowel care per rx 4. Weekly wts Addendum: 12/18/21 at [address] Amended: Links added.
[2021-12-18] MEDS: insulin Lispro (HumaLOG) vial - multi-dose SQ SCH ×2 (08:40→19:41)
[2021-12-18 08:41] LABS: ACANTHOCYTES FEW; ANISOCYTOSIS 2+; ELLIPTOCYTES FEW; PLATELET ESTIMATE NORMAL
[2021-12-18 08:42] LABS: BURR CELLS FEW; POLYCHROMASIA FEW
[2021-12-18] MEDS ORDERED: furosemide 40mg tablet PO ONE (09:15)
[2021-12-18 11:25] VITALS: BP 111/49
--- NOTE | 2021-12-18 12:44 | NUR ---
page to PICC RN [id number] Jv. Pt needs PIV for IV antibiotics. Unable to obtain access. PT has fistula on left. Tamika [id number]
--- NOTE | 2021-12-18 14:05 | NUR ---
Page Sent promotional table spacer PAGER ID: [phone] MESSAGE: [id number] Carias. PICC unable to obtain IV access. Can we change antibiotic and Lasix to PO ? does not want to take pt home today but will tomorrow if PNA has improved. Tamika [id number]
[2021-12-18 15:10] VITALS: BP 103/55
[2021-12-18] MEDS ORDERED: levoFLOXACIN 750MG TABLET PO ONE (15:30)
--- NOTE | 2021-12-18 15:40 | NUR ---
Page Sent promotional table spacer PAGER ID: [phone] MESSAGE: [id number] Carias. PT has maxipime and vanco due today but PICC RN was unable to get IV access. Would you like to change antibiotics to PO? Tamika [id number]
--- NOTE | 2021-12-18 16:39 | NUR ---
Unable to insert PIV to right hand x2 patient refuses additional attempts. RN notified
[2021-12-18] MEDS ORDERED: JUVEN Smoothie Arginine/Glut./Ca2+Bmb (Juven 19.3pkt) 240ml cup PO SCH (17:30)
--- NOTE | 2021-12-18 18:21 | NUR ---
[place] documentation: I have reviewed and agree with all interventions, assessments performed and documented by Marjorie FARRELL . [place] Medication Administration: For this medication-pass time frame, all medication were reviewed, dispensed, administered and documented per hospital policy by Marjorie FARRELL.
--- NOTE | 2021-12-18 18:34 | NUR ---
Problems reprioritized. Patient report given, questions answered & plan of care reviewed with Kalyan FARRELL. Patient resting in bed at bedside. Patient in no acute distress.
[2021-12-18] MEDS: furosemide 40mg tablet PO SCH (20:00)
[2021-12-18] MEDS: enoxaparin 40mg/0.4ml syringe SUBCUT SCH (21:01)
[2021-12-18] MEDS: Insulin Degludec (Tresiba Flextouch U-100) SQ SCH (21:02)
[2021-12-18] MEDS: atorvastatin 10mg tablet PO SCH (21:02)
[2021-12-18 22:00] VITALS: BP 125/50
[2021-12-19] MEDS: ipratropium/albuterol 3ml nebule IH SCH ×2 (01:34→08:17)
[2021-12-19 02:00] VITALS: BP 127/56
[2021-12-19] MEDS ORDERED: VANCOMYCIN LEVEL IV ONE (03:30)
[2021-12-19 06:05] LABS: BASOPHILS # (AUTO) 0.1 X10'3 (0-0.2); BASOPHILS % (AUTO) 0.7 % (0-1); EOSINOPHILS # (AUTO) 0.2 X10'3 (0-0.9); EOSINOPHILS % (AUTO) 1.6 % (0-6); HEMATOCRIT 30.8 % (35.0-45.0); HEMOGLOBIN 9.8 g/dl (12.0-16.0); LYMPHOCYTES # (AUTO) 1.3 X10'3 (1.1-4.8); LYMPHOCYTES % (AUTO) 9.1 % (21-51); MEAN CORPUSCULAR HEMOGLOBIN 27.7 PG (27.0-31.0); MEAN CORPUSCULAR HGB CONC 31.9 g/dL (33.0-36.5); MEAN CORPUSCULAR VOLUME 86.7 FL (78-98); MEAN PLATELET VOLUME 9.1 FL (7.4-10.4); MONOCYTES # (AUTO) 1.3 X10'3 (0-0.9); MONOCYTES % (AUTO) 9.5 % (2-12); NEUTROPHILS % (AUTO) 79.1 % (42-75); PLATELET COUNT 420 X10'3 (140-440); RED BLOOD COUNT 3.55 X10'6 (4.20-5.60); RED CELL DISTRIBUTION WIDTH 19.7 % (11.5-14.5); WHITE BLOOD COUNT 13.9 X10'3 (4.5-11.0)
[2021-12-19 06:32] LABS: ALANINE AMINOTRANSFERASE 25 U/L (12-78); ALBUMIN 2.4 G/DL (3.4-5.0); ALBUMIN/GLOBULIN RATIO 0.6 (1.1-1.5); ALKALINE PHOSPHATASE 89 IU/L (46-116); ANION GAP 13 (8-16); ASPARTATE AMINO TRANSFERASE 15 U/L (10-37); BILIRUBIN,TOTAL 0.5 MG/DL (0.1-1.0); BLOOD UREA NITROGEN 25 MG/DL (7-18); CHLORIDE 99 MMOL/L (99-107); CREATININE 1.04 MG/DL (0.40-0.90); GLUCOSE 173 MG/DL (70-104); POTASSIUM 4.4 MMOL/L (3.5-5.1); SODIUM 136 MMOL/L (135-145); TOTAL CARBON DIOXIDE 24.1 MMOL/L (24-32); TOTAL PROTEIN 6.1 G/DL (6.4-8.2); eGFR 55 ML/MIN
[2021-12-19 07:00] VITALS: BP 118/60
[2021-12-19] MEDS: ezetimibe 10mg tablet PO SCH (07:37)
[2021-12-19] MEDS: predniSONE 5mg tablet PO SCH (07:38)
[2021-12-19] MEDS: docusate sod 100mg capsule PO SCH (07:38)
[2021-12-19] MEDS: lisinopril 20mg tablet PO SCH (07:38)
[2021-12-19] MEDS: furosemide 40mg tablet PO SCH (07:39)
[2021-12-19] MEDS: amLODIPine 5mg tablet PO SCH (07:39)
[2021-12-19] MEDS: metoprolol tartrate 50mg tablet PO SCH (07:41)
[2021-12-19] MEDS: mycophenolate mofetil 250mg capsule PO SCH (07:42)
[2021-12-19] MEDS: HYDROcodone/acetaminophen 5mg/325mg tablet PO PRN (07:51)
[2021-12-19] MEDS: tacrolimus anhydrous 1mg capsule PO SCH (08:00)
[2021-12-19] MEDS: LIRAGLUTIDE 0.6 MG/0.1 ML PEN.INJCTR SQ SCH (08:00)
[2021-12-19] MEDS: K and/or MAG REPLACEMENT MC SCH (08:00)
[2021-12-19] MEDS ORDERED: FURO40TA4 PO (09:14)
[2021-12-19] MEDS ORDERED: HYDR-3965 PO (09:14)
[2021-12-19] MEDS ORDERED: LEVO750T46 PO (09:14)
[2021-12-19 11:00] VITALS: BP 98/64
--- NOTE | 2021-12-19 11:55 | NUR ---
new order to discharge pt. pt stable/A&O x4, family at bedside. discharge instructions given-verbalized understanding. Home meds returned to pt. denies pain at this time.
== END 2021-12-19 11:50 | disposition home health service (06) | DRG 193 ==
LOC: ER 08:19 → ED HOLD 15:37 → PCU 3S 20:02
PROVIDERS: ADMIT Family Medicine; ATTEND Family Medicine
PROC: 0W9B3ZX Drainage of Left Pleural Cavity, Percutaneous Approach, Diagnostic (ICD-10-PCS; 2021-12-14)
PROC: 30233N1 Transfusion of Nonautologous Red Blood Cells into Peripheral Vein, Percutaneous Approach (ICD-10-PCS; principal; 2021-12-17)
DX: J18.9 Pneumonia, unspecified organism (principal); J96.01 Acute respiratory failure with hypoxia; G93.41 Metabolic encephalopathy; J90 Pleural effusion, not elsewhere classified; Z94.0 Kidney transplant status; Z94.83 Pancreas transplant status; J98.11 Atelectasis; I13.0 Hypertensive heart and chronic kidney disease with heart failure and stage 1 through stage 4 chronic kidney disease, or unspecified chronic kidney disease; I50.9 Heart failure, unspecified; D63.8 Anemia in other chronic diseases classified elsewhere; N18.9 Chronic kidney disease, unspecified; E78.5 Hyperlipidemia, unspecified; Z60.2 Problems related to living alone; I25.10 Atherosclerotic heart disease of native coronary artery without angina pectoris; Z79.82 Long term (current) use of aspirin; Z79.899 Other long term (current) drug therapy; Z86.73 Personal history of transient ischemic attack (TIA), and cerebral infarction without residual deficits; Z95.1 Presence of aortocoronary bypass graft; E10.8 Type 1 diabetes mellitus with unspecified complications; Z95.2 Presence of prosthetic heart valve; Z88.8 Allergy status to other drugs, medicaments and biological substances; Y95 Nosocomial condition
CPT/HCPCS: 32555; 36415; 36430; 71045; 71046; 71250; 80053; 80197; 82948; 83605; 83735; 83880; 84132; 84145; 84484; 85007; 85008; 85025; 86644; 86885; 86900; 86901; 86920; 86945; 87040; 87070; 87075; 87081; 88108; 88305; 88341; 88342; 89051; 93005; 94640; 94760; 96365; 97110; 97116; 97161; 97530; 99285; G0378; J0692; J1650; J1815; J1940; J2405; J3370; J7507; J7512; J7517; P9016

== ENCOUNTER 2022-04-09 13:29 | Emergency (ER) | payer MEDICARE, BC ==
[~2022-04-09] VITALS: Ht 152.4 cm; Wt 40.9 kg
[~2022-04-09 13:29] MED LIST changes: -ATOR10TA PO; +ATOR10TA70 PO; -FERR325T28 PO; -FOLI1TAB27 PO; +FURO40TA4 PO; -HYDR-3972 PO
[2022-04-09 14:08] LABS: BASOPHILS # (AUTO) 0.1 X10'3 (0-0.2); BASOPHILS % (AUTO) 1.2 % (0-1); EOSINOPHILS # (AUTO) 0.1 X10'3 (0-0.9); EOSINOPHILS % (AUTO) 0.8 % (0-6); HEMATOCRIT 37.3 % (35.0-45.0); HEMOGLOBIN 12.2 g/dl (12.0-16.0); LYMPHOCYTES # (AUTO) 1.4 X10'3 (1.1-4.8); LYMPHOCYTES % (AUTO) 16.4 % (21-51); MEAN CORPUSCULAR HEMOGLOBIN 29.7 PG (27.0-31.0); MEAN CORPUSCULAR HGB CONC 32.6 g/dL (33.0-36.5); MEAN CORPUSCULAR VOLUME 90.9 FL (78-98); MEAN PLATELET VOLUME 10.3 FL (7.4-10.4); MONOCYTES # (AUTO) 0.7 X10'3 (0-0.9); MONOCYTES % (AUTO) 8.3 % (2-12); NEUTROPHILS # (AUTO) 6.4 X10'3 (1.8-7.7); NEUTROPHILS % (AUTO) 73.3 % (42-75); PLATELET COUNT 224 X10'3 (140-440); WHITE BLOOD COUNT 8.8 X10'3 (4.5-11.0)
[2022-04-09 14:25] LABS: ALANINE AMINOTRANSFERASE 21 U/L (12-78); ALBUMIN 3.8 G/DL (3.4-5.0); ALKALINE PHOSPHATASE 81 IU/L (46-116); ANION GAP 10 (8-16); ASPARTATE AMINO TRANSFERASE 13 U/L (10-37); BILIRUBIN,TOTAL 0.4 MG/DL (0.1-1.0); BLOOD UREA NITROGEN 17 MG/DL (7-18); BUN/CREATININE RATIO 19.3 (6.6-38.0); CALCIUM 9.6 MG/DL (8.5-10.1); CHLORIDE 104 MMOL/L (99-107); CREATININE 0.88 MG/DL (0.40-0.90); GLUCOSE 126 MG/DL (70-104); POTASSIUM 4.2 MMOL/L (3.5-5.1); SODIUM 141 MMOL/L (135-145); TOTAL CARBON DIOXIDE 26.9 MMOL/L (24-32); TOTAL PROTEIN 7.6 G/DL (6.4-8.2); eGFR 66 ML/MIN
--- NOTE | 2022-04-09 15:41 | NUR ---
Pt connceted to monitor technician for further observations.
[2022-04-09] MEDS ORDERED: SCOP1PAT11 TOP (16:46)
--- NOTE | 2022-04-09 16:58 | NUR ---
Pt d/c home via ambulatory with family member in good comdition, instructions given, pt verbalized understanding.
[2022-04-09 17:02] VITALS: BP 170/95
== END 2022-04-09 17:07 | disposition home or self-care (01) ==
LOC: ER 13:29
DX: G89.29 Other chronic pain (principal); R11.2 Nausea with vomiting, unspecified; R63.4 Abnormal weight loss; I12.9 Hypertensive chronic kidney disease with stage 1 through stage 4 chronic kidney disease, or unspecified chronic kidney disease; E11.22 Type 2 diabetes mellitus with diabetic chronic kidney disease; N18.9 Chronic kidney disease, unspecified; Z88.5 Allergy status to narcotic agent; Z91.09 Other allergy status, other than to drugs and biological substances
CPT/HCPCS: 36415; 71045; 71250; 74176; 80053; 83880; 84484; 85025; 93005; 99285

== ENCOUNTER 2022-05-02 10:10 | Day surgery (SDC) | payer MEDICARE, BC ==
[~2022-05-02] VITALS: Ht 149.9 cm; Wt 42.7 kg
[~2022-05-02 10:10] MED LIST changes: +SCOP1PAT11 TOP
[2022-05-02 10:25] VITALS: BP 187/58
[2022-05-02] MEDS ORDERED: fentaNYL/PF 50MCG/1 ML 2ML syringe ONE (10:47)
[2022-05-02] MEDS ORDERED: MIDAZolam 1 MG/ML 5ML VIAL ONE (10:47)
[2022-05-02] MEDS ORDERED: LIDOcaine Viscous 15ml cup ONE (10:48)
[2022-05-02 12:20] VITALS: BP 122/58
[2022-05-02 12:30] VITALS: BP 131/65
[2022-05-02 12:40] VITALS: BP 139/65
[2022-05-02 12:50] VITALS: BP 158/69
== END 2022-05-02 12:50 | disposition home or self-care (01) ==
LOC: GI LAB 10:10
PROVIDERS: ATTEND Internal Medicine Gastroenterology
DX: K26.9 Duodenal ulcer, unspecified as acute or chronic, without hemorrhage or perforation (principal); K31.1 Adult hypertrophic pyloric stenosis; K31.7 Polyp of stomach and duodenum; K31.5 Obstruction of duodenum
CPT/HCPCS: 43239; 43245; 99153; C1726; G0500; J2250; J3010; J7030; Z7512; 43249; 99152; A4620

== ENCOUNTER 2022-05-26 21:06 | Emergency (ER) | payer MEDICARE, BC ==
[~2022-05-26] VITALS: Ht 152.4 cm; Wt 42.3 kg
[~2022-05-26 21:06] MED LIST changes: -AMLO10TA PO; -ATOR10TA70 PO; -FURO40TA4 PO
[2022-05-26 21:34] LABS: BASOPHILS # (AUTO) 0.1 X10'3 (0-0.2); BASOPHILS % (AUTO) 1.6 % (0-1); EOSINOPHILS % (AUTO) 0.4 % (0-6); HEMATOCRIT 38.8 % (35.0-45.0); HEMOGLOBIN 12.7 g/dl (12.0-16.0); LYMPHOCYTES # (AUTO) 1.6 X10'3 (1.1-4.8); LYMPHOCYTES % (AUTO) 23.5 % (21-51); MEAN CORPUSCULAR HEMOGLOBIN 29.7 PG (27.0-31.0); MEAN CORPUSCULAR HGB CONC 32.7 g/dL (33.0-36.5); MONOCYTES # (AUTO) 0.6 X10'3 (0-0.9); MONOCYTES % (AUTO) 8.6 % (2-12); NEUTROPHILS # (AUTO) 4.5 X10'3 (1.8-7.7); NEUTROPHILS % (AUTO) 65.9 % (42-75); PLATELET COUNT 251 X10'3 (140-440); RED BLOOD COUNT 4.26 X10'6 (4.20-5.60); RED CELL DISTRIBUTION WIDTH 15.2 % (11.5-14.5); WHITE BLOOD COUNT 6.8 X10'3 (4.5-11.0)
[2022-05-26 21:46] LABS: ALANINE AMINOTRANSFERASE 17 U/L (12-78); ALBUMIN 3.9 G/DL (3.4-5.0); ALBUMIN/GLOBULIN RATIO 1.1 (1.1-1.5); ALKALINE PHOSPHATASE 66 IU/L (46-116); ANION GAP 11 (8-16); ASPARTATE AMINO TRANSFERASE 13 U/L (10-37); BILIRUBIN,TOTAL 0.5 MG/DL (0.1-1.0); BLOOD UREA NITROGEN 16 MG/DL (7-18); BUN/CREATININE RATIO 15.5 (6.6-38.0); CALCIUM 9.9 MG/DL (8.5-10.1); CHLORIDE 101 MMOL/L (99-107); CREATININE 1.03 MG/DL (0.40-0.90); GLUCOSE 170 MG/DL (70-104); LIPASE 128 U/L (73-393); POTASSIUM 3.8 MMOL/L (3.5-5.1); SODIUM 141 MMOL/L (135-145); TOTAL CARBON DIOXIDE 28.6 MMOL/L (24-32); TOTAL PROTEIN 7.5 G/DL (6.4-8.2); eGFR 55 ML/MIN
[2022-05-26] MEDS ORDERED: ONDA-103 PO (21:51)
[2022-05-26] MEDS ORDERED: OMEP40CA21 PO (21:51)
[2022-05-26] MEDS ORDERED: PANT-47 PO (21:51)
[2022-05-26] MEDS ORDERED: CIPR-259 PO (21:51)
[2022-05-26] MEDS ORDERED: diphenhydrAMINE 50 mg/ml inj IV ONE (22:10)
[2022-05-26] MEDS ORDERED: normal saline 1000ml 1,000 ML IV ONE (22:10)
[2022-05-26] MEDS ORDERED: metoclopramide 5 mg/ml inj IV ONE (22:10)
--- NOTE | 2022-05-26 22:42 | NUR ---
nausea and vomiting relieved at this time, provider with multiple blankets, no other verbalized needs
[2022-05-26 23:17] VITALS: BP 193/103
[2022-05-26] MEDS ORDERED: ondansetron/PF 4mg/2ml inj IM ONE (23:20)
[2022-05-26] MEDS ORDERED: ondansetron/PF 4mg/2ml inj IV ONE (23:35)
[2022-05-26 23:44] LABS: CLARITY,URINE CLOUDY (Clear); COLOR,URINE YELLOW (Yellow); GLUCOSE, URINE NEGATIVE (Neg); KETONES,URINE 15 mg/dl (Neg); LEUKOCYTE ESTERASE ,URINE SMALL (Neg); NITRITES, URINE NEGATIVE (Neg); OCCULT BLOOD,URINE NEGATIVE (Neg); PH,URINE 7.5 (4.8-8.0); PROTEIN,URINE TRACE mg/dl (Neg); UROBILINOGEN,URINE 0.2 E.U/dL (0.2-1.0)
[2022-05-26 23:48] LABS: UA COLLECTION TYPE CLN CATCH MIDSTREAM
[2022-05-26 23:52] LABS: RBC,URINE 0-2 /HPF (0-2)
[2022-05-26 23:53] LABS: AMORPHOUS PHOSPHATES 3+; BACTERIA,URINE FEW /HPF (Neg); MUCUS STRANDS MODERATE /LPF (Neg); SQUAMOUS EPITHELIAL CELL,UR MODERATE /LPF (FEW); TRANSITIONAL EPI CELLS,URINE FEW /HPF
--- NOTE | 2022-05-27 00:07 | NUR ---
pt passed po challenge states ,"i think i will be ok to go home." Addendum: 05/27/22 at 0007 by ADEARMITT po challenge passed, stated readiness for d/c, "i think i will be ok at home." when asked "do you feel well enough to go home." patient also expresses severe anxiety about staying in hospital due to bacterial burden and being on antirejection medication.
--- NOTE | 2022-05-27 01:06 | NUR ---
repeat chemistry sent
[2022-05-27 01:21] LABS: ALBUMIN 3.4 G/DL (3.4-5.0); ANION GAP 9 (8-16); BLOOD UREA NITROGEN 16 MG/DL (7-18); BUN/CREATININE RATIO 18.2 (6.6-38.0); CALCIUM 9.2 MG/DL (8.5-10.1); CHLORIDE 104 MMOL/L (99-107); CREATININE 0.88 MG/DL (0.40-0.90); GLUCOSE 130 MG/DL (70-104); POTASSIUM 3.5 MMOL/L (3.5-5.1); SODIUM 141 MMOL/L (135-145); TOTAL CARBON DIOXIDE 28.3 MMOL/L (24-32); eGFR 66 ML/MIN
[2022-05-27] MEDS ORDERED: METO5TAB85 PO (01:53)
== END 2022-05-27 02:14 | disposition home or self-care (01) ==
LOC: ER 21:07
DX: R11.2 Nausea with vomiting, unspecified (principal); I25.10 Atherosclerotic heart disease of native coronary artery without angina pectoris; I12.9 Hypertensive chronic kidney disease with stage 1 through stage 4 chronic kidney disease, or unspecified chronic kidney disease; E11.22 Type 2 diabetes mellitus with diabetic chronic kidney disease; N18.9 Chronic kidney disease, unspecified; Z86.73 Personal history of transient ischemic attack (TIA), and cerebral infarction without residual deficits; Z98.890 Other specified postprocedural states; Z60.2 Problems related to living alone; Z88.5 Allergy status to narcotic agent; Z88.8 Allergy status to other drugs, medicaments and biological substances; Z79.82 Long term (current) use of aspirin; Z79.4 Long term (current) use of insulin; Z79.899 Other long term (current) drug therapy
CPT/HCPCS: 36415; 80048; 80053; 81001; 83690; 85025; 87088; 96361; 96374; 96375; 99284; J1200; J2405; J2765; J7030

== ENCOUNTER 2022-05-27 19:03 | Emergency (ER) | payer MEDICARE, BC ==
[~2022-05-27] VITALS: Ht 149.9 cm; Wt 39.8 kg
[~2022-05-27 19:03] MED LIST changes: +CIPR-259 PO; +METO5TAB85 PO; +OMEP40CA21 PO; +ONDA-103 PO; +PANT-47 PO
[2022-05-27 19:24] VITALS: BP 174/108
[2022-05-27 19:55] LABS: BASOPHILS # (AUTO) 0.1 X10'3 (0-0.2); EOSINOPHILS % (AUTO) 0.5 % (0-6); HEMATOCRIT 36.8 % (35.0-45.0); HEMOGLOBIN 12.1 g/dl (12.0-16.0); LYMPHOCYTES # (AUTO) 1.6 X10'3 (1.1-4.8); LYMPHOCYTES % (AUTO) 22.5 % (21-51); MEAN CORPUSCULAR HEMOGLOBIN 29.9 PG (27.0-31.0); MEAN CORPUSCULAR HGB CONC 32.9 g/dL (33.0-36.5); MEAN PLATELET VOLUME 9.9 FL (7.4-10.4); MONOCYTES # (AUTO) 0.6 X10'3 (0-0.9); MONOCYTES % (AUTO) 8.3 % (2-12); NEUTROPHILS # (AUTO) 4.8 X10'3 (1.8-7.7); NEUTROPHILS % (AUTO) 67.7 % (42-75); PLATELET COUNT 239 X10'3 (140-440); RED BLOOD COUNT 4.04 X10'6 (4.20-5.60); RED CELL DISTRIBUTION WIDTH 15.3 % (11.5-14.5); WHITE BLOOD COUNT 7.1 X10'3 (4.5-11.0)
[2022-05-27 20:10] LABS: ALANINE AMINOTRANSFERASE 14 U/L (12-78); ALBUMIN 3.8 G/DL (3.4-5.0); ALBUMIN/GLOBULIN RATIO 1.1 (1.1-1.5); ALKALINE PHOSPHATASE 63 IU/L (46-116); ANION GAP 11 (8-16); ASPARTATE AMINO TRANSFERASE 22 U/L (10-37); BILIRUBIN,TOTAL 0.5 MG/DL (0.1-1.0); BLOOD UREA NITROGEN 16 MG/DL (7-18); CHLORIDE 101 MMOL/L (99-107); CREATININE 1.07 MG/DL (0.40-0.90); GLUCOSE 202 MG/DL (70-104); LIPASE 128 U/L (73-393); POTASSIUM 3.7 MMOL/L (3.5-5.1); SODIUM 140 MMOL/L (135-145); TOTAL CARBON DIOXIDE 27.7 MMOL/L (24-32); TOTAL PROTEIN 7.3 G/DL (6.4-8.2); eGFR 53 ML/MIN
== END 2022-05-27 22:00 | disposition left against medical advice (07) ==
LOC: ER 19:04
DX: R11.10 Vomiting, unspecified (principal); Z53.21 Procedure and treatment not carried out due to patient leaving prior to being seen by health care provider
CPT/HCPCS: 36415; 80053; 83690; 85025